=== PATIENT | female | born 1995 | race African-American/Black ===

== ENCOUNTER 2017-07-18 07:48 | Emergency (ER) | payer SELFPAY ==
[2017-07-18 08:21] LABS: APPEARANCE,URINE SLIGHTLY-CLOUDY; BILIRUBIN,URINE NEGATIVE (NEGATIVE); COLOR,URINE YELLOW; GLUCOSE, URINE NEGATIVE (NEGATIVE); KETONES,URINE NEGATIVE (NEGATIVE); LEUKOCYTE ESTERASE,URINE NEGATIVE (NEGATIVE); NITRITE,URINE NEGATIVE (NEGATIVE); PROTEIN,URINE NEGATIVE (NEGATIVE); URINE SPECIFIC GRAVITY 1.015
--- NOTE | 2017-07-18 08:39 | ER Document Report ---
ED GI/ - General Chief Complaint: Flank Pain Stated Complaint: BACK PAIN Time Seen by Provider: 07/18/17 08:14 Mode of Arrival: Ambulatory Information source: Patient Notes: Patient is a 21-year-old female who presents to the ER today for left-sided low back pain 5 months. Patient states that it worsened over the past months and that is why she is here today. Patient states it is worse in the morning whenever she wakes up and then after she does some stretches and moves around gets better throughout the day. Patient denies any nausea, vomiting, dysuria, hematuria, abnormal vaginal discharge. - Related Data Allergies/Adverse Reactions: bee pollen Allergy (Verified 07/18/17 08:13) Past Medical History - General Information source: Patient - Social History Smoking Status: Never Smoker Frequency of alcohol use: None Drug Abuse: None Family History: Reviewed & Not Pertinent Patient has suicidal ideation: No Patient has homicidal ideation: No Pulmonary Medical History: Reports: Hx Asthma Renal/ Medical History: Denies: Hx Peritoneal Dialysis Review of Systems - Review of Systems Constitutional: No symptoms reported EENT: No symptoms reported Cardiovascular: No symptoms reported Respiratory: No symptoms reported Gastrointestinal: No symptoms reported Genitourinary: No symptoms reported Female Genitourinary: No symptoms reported Musculoskeletal: See HPI Skin: No symptoms reported Hematologic/Lymphatic: No symptoms reported Neurological/Psychological: No symptoms reported Physical Exam - Vital signs Vitals: Temp Pulse Resp BP Pulse Ox 98.7 F 67 12 112/42 L 100 07/18/17 07:55 07/18/17 07:55 07/18/17 07:55 07/18/17 07:55 07/18/17 07:55 - Notes Notes: PHYSICAL EXAMINATION: GENERAL: Well-appearing, smiling, and in no acute distress. HEAD: Atraumatic, normocephalic. EYES: Pupils equal round and reactive to light, extraocular movements intact, sclera anicteric, conjunctiva are normal. NECK: Normal range of motion, supple without lymphadenopathy LUNGS: CTAB and equal. No wheezes rales or rhonchi. HEART: Regular rate and rhythm without murmurs ABDOMEN: Soft, no tenderness. No guarding, no rebound BACK: no vertebral tenderness, normal ROM GI/: no CVA tenderness EXTREMITIES: Normal range of motion, no pitting edema. No cyanosis. NEUROLOGICAL: Cranial nerves grossly intact. Normal sensory/motor exams. PSYCH: Normal mood, normal affect. SKIN: Warm, Dry, normal turgor, no rashes or lesions noted Course - Re-evaluation Re-evalutation: 07/18/17 08:43 Urinalysis negative for infection negative today. Patient has no tenderness to palpation at all to back or abdomen. Vitals are all stable. Patient is afebrile. - Vital Signs Vital signs: Temp Pulse Resp BP Pulse Ox 98.0 F 89 14 109/62 100 07/18/17 08:50 07/18/17 08:50 07/18/17 08:50 07/18/17 08:50 07/18/17 08:50 - Laboratory Laboratory results interpreted by me: 07/18/17 08:10 Urine Urobilinogen 4.0 H Discharge - Discharge Clinical Impression: Left-sided back pain Qualifiers: Back pain location: low back pain Chronicity: acute Sciatica presence: without sciatica Qualified Code(s): M54.5 - Low back pain Condition: Stable Disposition: HOME, SELF-CARE Additional Instructions: Please follow up with your primary care provider, please call today for follow up appt. Please return if you have worsening symptoms. Prescriptions: Cyclobenzaprine HCl [Flexeril 10 mg Tablet] 10 mg PO TIDP PRN #15 tab PRN Reason:
[2017-07-18 08:53] VITALS: BP 109/62
== END 2017-07-18 08:58 | disposition home or self-care (01) ==
LOC: ER 07:48
DX: M54.5 Low back pain (principal)
CPT/HCPCS: 81001; 81025; 99284

== ENCOUNTER 2018-04-27 10:48 | Emergency (ER) | payer SELFPAY ==
--- NOTE | 2018-04-27 11:17 | ER Document Report ---
ED Medical Screen (RME) - General Chief Complaint: Pelvic Pain Stated Complaint: LOWER PELVIC PAIN Time Seen by Provider: 04/27/18 11:12 Notes: Patient is a 22-year-old female that presents to the emergency department for chief complaint of pelvic pain and pain with intercourse. Patient reports having the symptoms for about 1 week since she finished her menstrual period, she has noted a vaginal odor as well, so she came to the ED to have this evaluated.. ROS: Other than noted above, the 12 point review of systems was reviewed with the patient and were negative, all pertinent findings are included in the HPI. PHYSICAL EXAMINATION: Vital signs reviewed. GENERAL: Well-appearing, well-nourished and in no acute distress. HEAD: Atraumatic, normocephalic. EYES: Pupils equal round extraocular movements intact, conjunctiva are normal. ENT: Nares patent NECK: Normal range of motion CV: Heart regular rate and rhythm LUNGS: No respiratory distress Musculoskeletal: Normal range of motion NEUROLOGICAL: Normal speech PSYCH: Normal mood, normal affect. MDM: Patient seen and examined for rapid initial assessment. Vital signs reviewed. A comprehensive ED assessment and evaluation of the patient, analysis of test results and completion of the medical decision making process will be conducted by additional ED providers. *Note is created using voice recognition software and may contain spelling, syntax or grammatical errors. TRAVEL OUTSIDE OF THE [place] IN LAST 30 DAYS: No - Related Data Allergies/Adverse Reactions: bee pollen Allergy (Verified 07/18/17 08:13) Past Medical History Pulmonary Medical History: Reports: Hx Asthma Renal/ Medical History: Denies: Hx Peritoneal Dialysis Physical Exam - Vital signs Vitals: Temp Pulse Resp BP Pulse Ox 98.1 F 103 H 20 123/76 100 04/27/18 10:54 04/27/18 10:54 04/27/18 10:54 04/27/18 10:54 04/27/18 10:54 Course - Vital Signs Vital signs: Temp Pulse Resp BP Pulse Ox 98.1 F 103 H 20 123/76 100 04/27/18 10:54 04/27/18 10:54 04/27/18 10:54 04/27/18 10:54 04/27/18 10:54
[2018-04-27] MEDS ORDERED: LIDOCAINE 1% INJ-PF (10 MG/ML) 30 ML SDV INJ ONE (11:48)
[2018-04-27] MEDS ORDERED: AZITHROMYCIN 250 MG TABLET PO ONE (11:48)
[2018-04-27] MEDS ORDERED: ONDANSETRON 4 MG TAB.RAPDIS PO ONE (11:49)
[2018-04-27] MEDS ORDERED: CEFTRIAXONE INJ 250 MG VIAL IM ONE (11:49)
--- NOTE | 2018-04-27 11:52 | ER Document Report ---
ED General - General Chief Complaint: Pelvic Pain Stated Complaint: LOWER PELVIC PAIN Time Seen by Provider: 04/27/18 11:12 Mode of Arrival: Ambulatory Information source: Patient Notes: 22-year-old female presents emergency department complaints of pelvic pain and abnormal vaginal discharge. Patient states that this is been present for the last 2 weeks. She states that she is having pain with intercourse. She denies any nausea, vomiting, diarrhea, constipation. She states that her last menstrual period was a month ago. She is not on any control. Patient is concerned about having a sexually transmitted disease. Patient is requesting treatment for sexually transmitted diseases. TRAVEL OUTSIDE OF THE [place] IN LAST 30 DAYS: No - HPI Onset: Other - 2 weeks Quality of pain: Stabbing Severity: Mild Associated symptoms: None Exacerbated by: Other - intercourse Relieved by: Denies Similar symptoms previously: No Recently seen / treated by doctor: No - Related Data Allergies/Adverse Reactions: bee pollen Allergy (Verified 07/18/17 08:13) Past Medical History - Social History Smoking Status: Never Smoker Family History: Reviewed & Not Pertinent Patient has suicidal ideation: No Patient has homicidal ideation: No Pulmonary Medical History: Reports: Hx Asthma Renal/ Medical History: Denies: Hx Peritoneal Dialysis Review of Systems - Review of Systems Constitutional: No symptoms reported EENT: No symptoms reported Cardiovascular: No symptoms reported Respiratory: No symptoms reported Gastrointestinal: Abdominal pain Genitourinary: No symptoms reported Female Genitourinary: Vaginal discharge, Vaginal odor Musculoskeletal: No symptoms reported Skin: No symptoms reported Hematologic/Lymphatic: No symptoms reported Neurological/Psychological: No symptoms reported -: Yes All other systems reviewed and negative Physical Exam - Vital signs Vitals: Temp Pulse Resp BP Pulse Ox 98.1 F 103 H 20 123/76 100 04/27/18 10:54 04/27/18 10:54 04/27/18 10:54 04/27/18 10:54 04/27/18 10:54 - Notes Notes: PHYSICAL EXAMINATION: GENERAL: Well-appearing, well-nourished and in no acute distress. HEAD: Atraumatic, normocephalic. EYES: Pupils equal round and reactive to light, extraocular movements intact, conjunctiva are normal. ENT: Nares patent, oropharynx clear without exudates. Moist mucous membranes. NECK: Normal range of motion, supple without lymphadenopathy LUNGS: Breath sounds clear to auscultation bilaterally and equal. No wheezes rales or rhonchi. HEART: Regular rate and rhythm without murmurs ABDOMEN: Soft, nontender, nondistended abdomen. No guarding, no rebound. No masses appreciated. Female : No vaginal discharge appreciated. +cervical motion tenderness. No ovarian tenderness. Musculoskeletal: Normal range of motion, no pitting or edema. No cyanosis. NEUROLOGICAL: Cranial nerves grossly intact. Normal speech, normal gait. Normal sensory, motor exams PSYCH: Normal mood, normal affect. SKIN: Warm, Dry, normal turgor, no rashes or lesions noted. Course - Re-evaluation Re-evalutation: 04/27/18 13:08 Pelvic exam remarkable for cervical motion tenderness to palpation. No abnormal discharge was appreciated. Patient treated with Rocephin and azithromycin as she is concerned out sexually transmitted diseases. Patient instructed to follow-up with the [facility] SCIENTIST provided if she continues to have her pelvic discomfort, to take [id number] medication as needed for symptom relief, and to return for worsening symptoms. Patient is agreeable with plan of care. - Vital Signs Vital signs: Temp Pulse Resp BP Pulse Ox 98.1 F 103 H 20 123/76 100 04/27/18 10:54 04/27/18 10:54 04/27/18 10:54 04/27/18 10:54 04/27/18 10:54 - Laboratory Laboratory results interpreted by me: 04/27/18 12:03 Urine Urobilinogen 2.0 H Discharge - Discharge Clinical Impression: Cervicitis Condition: Good Disposition: HOME, SELF-CARE Instructions: Pelvic Pain ([facility]), Azithromycin ([facility]), Cephalosporins ([facility]) Referrals: SAMANTHA EVANS MD [ACTIVE STAFF] - Follow up as needed
[2018-04-27 12:22] LABS: APPEARANCE,URINE SLIGHTLY-CLOUDY; BILIRUBIN,URINE NEGATIVE (NEGATIVE); COLOR,URINE YELLOW; GLUCOSE, URINE NEGATIVE (NEGATIVE); KETONES,URINE NEGATIVE (NEGATIVE); LEUKOCYTE ESTERASE,URINE NEGATIVE (NEGATIVE); NITRITE,URINE NEGATIVE (NEGATIVE); PROTEIN,URINE NEGATIVE (NEGATIVE); URINE SPECIFIC GRAVITY 1.018
[2018-04-27 12:39] LABS: T.VAGINALIS (WET MOUNT) NO TRICHOMONAS SEEN; YEAST (WET MOUNT) NO YEAST SEEN
[2018-04-27 12:40] LABS: EPITHELIALS (WET MOUNT) 3+ EPITHELIALS SEEN; WBCS (WET MOUNT) NO WBCS SEEN
[2018-04-27 13:59] VITALS: BP 113/61
[2018-04-27 14:11] LABS: CHLAM PCR NOT DETECTED (NOT DETECT); GON PCR NOT DETECTED (NOT DETECT)
== END 2018-04-27 13:57 | disposition home or self-care (01) ==
LOC: ER 10:48
DX: N72 Inflammatory disease of cervix uteri (principal)
CPT/HCPCS: 99284; 96372; 87210; 81025; 81001; 87491; 87591; S0119; J3490; J0696

== ENCOUNTER → 2018-10-03 | Outpatient (CLI) | payer SELFPAY ==
--- NOTE | 2018-10-03 15:58 | RADIOLOGY REPORT (SQ) ---
EXAM DESCRIPTION: U/S [id number] TRNABD 1GES W/ODOP COMPLETED DATE/TIME: 10/03/2018 2:19 pm REASON FOR STUDY: Z34.01 ENCNTR FOR SUPRVSN OF NORMAL FIRST PREG, FIRST TRIMESTER Z34.01 ENCNTR FOR SUPRVSN OF NORMAL FIRST PREG, FIRST TRIMES COMPARISON: None. TECHNIQUE: Transabdominal static and realtime grayscale images acquired of the pelvis. Additional se lected spectral and color Doppler images recorded. All images stored on PACs. bHCG: Not available CLINICAL DATES: Last menses 07/26/2018 LIMITATIONS: None. FINDINGS: FETUS: Single Living intrauterine . ULTRASOUND EGA: 9 weeks 5 days ULTRASOUND ESHA: 05/03/2019 EFW: Not applicable less than 20 weeks. CRL: 2.9 cm FHR: 182 beats per minute. SURVEY: too early to assess AMNIOTIC FLUID: Adequate amount. PLACENTA: Not yet developed due to early gestation. SUBCHORIONIC BLEED: Yes. SIZE OF BLEED: Small, 7 x 5 mm UTERUS: No masses. No anomalies. Uterus is 8.6 x 6.1 x 6.1 cm CERVICAL LENGTH: 2.6 cm Closed. RIGHT ADNEXA: Normal ovary with normal vascular flow. Right ovary 2.8 x 3.1 x 1.6 cm No adnexal free fluid. No adnexal masses. LEFT ADNEXA: Normal ovary with normal vascular flow. Left ovary 3 x 2.7 x 2.1 cm No adnexal free fluid. No adnexal masses. FREE FLUID: None. OTHER: No other significant finding. IMPRESSION: LIVING INTRAUTERINE . EGA 9 weeks 5 days Trimester of : First - 0 to 13 weeks. TECHNICAL DOCUMENTATION: JOB ID: [id number]- All Rights Reserved rev Reading location - IP/workstation name: [email or web address]
== END ==
LOC: RAD 13:48
PROVIDERS: ATTEND Midwife
DX: Z34.01 Encounter for supervision of normal first pregnancy, first trimester (principal)
CPT/HCPCS: 76801

== ENCOUNTER 2018-12-01 07:48 | Emergency (ER) | payer MEDICAID ==
[2018-12-01] MEDS ORDERED: PYRIDOXINE HCL INJ 100 MG/1 ML VIAL IM ONE (09:19)
[2018-12-01] MEDS ORDERED: NORMAL SALINE 1000 ML 1,000 ML IV ONE (09:19)
--- NOTE | 2018-12-01 09:19 | ER Document Report ---
ED Medical Screen (RME) - General Chief Complaint: Vomiting Stated Complaint: VOMITING Time Seen by Provider: 12/01/18 09:17 Primary Care Provider: JEFFERSON MIDDLETON CNM [Primary Care Provider] - Follow up as needed Mode of Arrival: Ambulatory Information source: Patient Notes: 23-year-old female presents to ED for nausea and vomiting since yesterday. She is 18 weeks 1 day . Last menstrual period was 3-19 is 1 para 0. She states she is been nausea and vomiting. She has vomited once today started vomiting yesterday was not able to keep down breakfast or lunch vomited her dinner also. Patient is alert oriented respirations regular and unlabored speaking in full sentences walks with a even steady gait. She states she has not tried to take anything for her nausea and vomiting yet. She has not tried vitamin B6. I have greeted and performed a rapid initial assessment of this patient. A comprehensive ED assessment and evaluation of the patient, analysis of test results and completion of medical decision making process will be conducted by an additional ED providers. Dictation of this chart was performed using voice recognition software; therefore, there may be some unintended grammatical errors. TRAVEL OUTSIDE OF THE [place] IN LAST 30 DAYS: No - Related Data Allergies/Adverse Reactions: bee pollen Allergy (Verified 12/01/18 07:51) No Known Drug Allergies Allergy (Verified 12/01/18 07:51) Past Medical History Pulmonary Medical History: Reports: Hx Asthma Renal/ Medical History: Denies: Hx Peritoneal Dialysis Physical Exam - Vital signs Vitals: Temp Pulse Resp BP Pulse Ox 98.3 F 76 9 L 114/59 L 100 12/01/18 08:04 12/01/18 08:04 12/01/18 08:04 12/01/18 08:04 12/01/18 08:04 Course - Vital Signs Vital signs: Temp Pulse Resp BP Pulse Ox 98.3 F 76 9 L 114/59 L 100 12/01/18 08:04 12/01/18 08:04 12/01/18 08:04 12/01/18 08:04 12/01/18 08:04 Doctor's Discharge - Discharge Referrals: JEFFERSON MIDDLETON CNM [Primary Care Provider] - Follow up as needed
[2018-12-01 09:47] LABS: ABSOLUTE LYMPHOCYTES (AUTO) 2.2 10^3/uL (0.5-4.7); ABSOLUTE MONOCYTES (AUTO) 0.7 10^3/uL (0.1-1.4); ABSOLUTE NEUT (AUTO) 8.2 10^3/uL (1.7-8.2); BASOPHILS % (AUTO) 0.3 % (0-2); EOSINOPHILS % (AUTO) 0.3 % (0-6); HEMATOCRIT 36.8 % (36.0-47.0); LYMPHOCYTES % (AUTO) 19.8 % (13-45); MEAN CORPUSCULAR HEMOGLOBIN 30.9 pg (27.0-33.4); MEAN CORPUSCULAR HGB CONC 32.7 g/dL (32.0-36.0); MEAN CORPUSCULAR VOLUME 94 fl (80-97); MONOCYTES % (AUTO) 6.7 % (3-13); PLATELET COUNT 321 10^3/uL (150-450); SEGMENTED NEUTROPHILS % (AUTO) 72.9 % (42-78); TOTAL CELLS COUNTED % (AUTO) 100 %; WHITE BLOOD COUNT 11.2 10^3/uL (4.0-10.5)
--- NOTE | 2018-12-01 09:48 | ER Document Report ---
ED General - General Chief Complaint: Vomiting Stated Complaint: VOMITING Time Seen by Provider: 12/01/18 09:17 Primary Care Provider: JEFFERSON MIDDLETON CNM [Primary Care Provider] - Follow up as needed Mode of Arrival: Ambulatory Information source: Patient, Parent TRAVEL OUTSIDE OF THE [place] IN LAST 30 DAYS: No - HPI Patient complains to provider of: vomiting in Onset: Yesterday - pt is G1 approx 18 wks along who had an episode of emesis yesterday. Earlier this am, she had another episode of emesis with a small amount of blood in it. Feels better now. - Related Data Allergies/Adverse Reactions: bee pollen Allergy (Verified 12/01/18 07:51) No Known Drug Allergies Allergy (Verified 12/01/18 07:51) Past Medical History - General Information source: Patient - Social History Smoking Status: Never Smoker Chew tobacco use (# tins/day): No Frequency of alcohol use: None Drug Abuse: None Family History: Reviewed & Not Pertinent Patient has suicidal ideation: No Patient has homicidal ideation: No Pulmonary Medical History: Reports: Hx Asthma Renal/ Medical History: Denies: Hx Peritoneal Dialysis Review of Systems - Review of Systems Constitutional: No symptoms reported EENT: No symptoms reported Cardiovascular: No symptoms reported Respiratory: No symptoms reported Gastrointestinal: See HPI, Vomiting Female Genitourinary: No symptoms reported Musculoskeletal: No symptoms reported Neurological/Psychological: No symptoms reported -: Yes All other systems reviewed and negative Physical Exam - Vital signs Vitals: Temp Pulse Resp BP Pulse Ox 98.3 F 76 9 L 114/59 L 100 12/01/18 08:04 12/01/18 08:04 12/01/18 08:04 12/01/18 08:04 12/01/18 08:04 - General General appearance: Appears well In distress: None - HEENT Head: Normocephalic Mouth/Lips: Normal Mucous membranes: Normal Pharynx: Normal Neck: Normal - Respiratory Respiratory status: No respiratory distress Breath sounds: Normal - Cardiovascular Rhythm: Regular Heart sounds: Normal auscultation Murmur: No - Abdominal Inspection: Normal Distension: No distension Bowel sounds: Normal Tenderness: Nontender Organomegaly: No organomegaly - Extremities General upper extremity: Normal inspection, Normal strength - Neurological Neuro grossly intact: Yes Cognition: Normal Orientation: AAOx4 Course - Re-evaluation Re-evalutation: 12/01/18 10:28 pt. felt much better at time of d/c -- no vomiting in ED -expressed desire to go home with mother. Has appt. with OB tomorrow - Vital Signs Vital signs: Temp Pulse Resp BP Pulse Ox 98.3 F 76 9 L 114/55 L 100 12/01/18 09:18 12/01/18 09:18 12/01/18 09:18 12/01/18 09:18 12/01/18 09:18 - Laboratory Result Diagrams: 12/01/18 09:08 12/01/18 09:08 Laboratory results interpreted by me: 12/01/18 12/01/18 12/01/18 09:08 09:08 09:08 WBC 11.2 H Glucose 70 L Urine Ketones 25 H Discharge - Discharge Clinical Impression: Vomiting Qualifiers: Vomiting type: unspecified Vomiting Intractability: non-intractable Nausea presence: unspecified Qualified Code(s): R11.10 - Vomiting, unspecified Condition: Stable Disposition: HOME, SELF-CARE Instructions: Intravenous (IV) Fluids ([facility]) Additional Instructions: rest, increase fluids, take meds as prescribed, return if worse Prescriptions: Ondansetron HCl [Zofran 4 mg Tablet] 1 - 2 tab PO Q4H PRN #10 tablet PRN Reason: Referrals: JEFEFRSON MIDDLETON CNM [Primary Care Provider] - Follow up as needed
[2018-12-01 09:52] LABS: APPEARANCE,URINE CLEAR; BILIRUBIN,URINE NEGATIVE (NEGATIVE); COLOR,URINE LIGHT YELLOW; GLUCOSE, URINE NEGATIVE (NEGATIVE); KETONES,URINE 25 mg/dL (NEGATIVE); URINE SPECIFIC GRAVITY 1.008
[2018-12-01 09:53] LABS: LEUKOCYTE ESTERASE,URINE NEGATIVE (NEGATIVE); NITRITE,URINE NEGATIVE (NEGATIVE); PROTEIN,URINE NEGATIVE (NEGATIVE); UROBILINOGEN,URINE NEGATIVE mg/dL (<2.0)
[2018-12-01 10:11] LABS: ALANINE AMINOTRANSFERASE 26 U/L (9-52); ALBUMIN 4.3 g/dL (3.5-5.0); ALKALINE PHOSPHATASE 61 U/L (38-126); ANION GAP 12 (5-19); ASPARTATE AMINO TRANSFERASE 31 U/L (14-36); BILIRUBIN,DIRECT 0.2 mg/dL (0.0-0.4); BILIRUBIN,TOTAL 0.5 mg/dL (0.2-1.3); BLOOD UREA NITROGEN 7 mg/dL (7-20); CALCIUM 9.7 mg/dL (8.4-10.2); CARBON DIOXIDE 23 mmol/L (22-30); CHLORIDE 103 mmol/L (98-107); GLUCOSE 70 mg/dL (75-110); POTASSIUM 3.9 mmol/L (3.6-5.0); SODIUM 137.6 mmol/L (137-145); TOTAL PROTEIN 8.1 g/dL (6.3-8.2)
[2018-12-01 11:02] VITALS: BP 119/48
== END 2018-12-01 11:02 | disposition home or self-care (01) ==
LOC: ER 07:48
DX: O99.619 Diseases of the digestive system complicating pregnancy, unspecified trimester (principal); K92.0 Hematemesis; O99.519 Diseases of the respiratory system complicating pregnancy, unspecified trimester; J45.909 Unspecified asthma, uncomplicated; Z3A.00 Weeks of gestation of pregnancy not specified; Z91.030 Bee allergy status
CPT/HCPCS: 99284; 96372; 96360; 86900; 86901; 36415; 84702; 85025; 80053; 81001; J3415; J7030

== ENCOUNTER 2019-02-08 00:40 | Inpatient (IN) | payer MEDICAID ==
[2019-02-08] MEDS ORDERED: MORPHINE SULFATE 10 MG/ML INJ ONE ×3 (01:03→23:15)
[2019-02-08] MEDS ORDERED: MORPHINE SULFATE 10 MG/ML INJ IV ONE (01:06)
[2019-02-08] MEDS ORDERED: CEFAZOLIN INJ 1 GM VIAL ONE ×2 (01:12→20:07)
[2019-02-08] MEDS ORDERED: CITRIC ACID/SODIUM CITRATE ORAL SOLN 15 ML UDCUP ONE ×2 (01:12→20:07)
[2019-02-08] MEDS ORDERED: RINGERS SOLUTION,LACTATED 1,000 ML IV PRN ×2 (01:17→21:55)
[2019-02-08] MEDS ORDERED: OXYCODONE-ACETAMINOPHEN 5-325 MG TABLET ONE (01:22)
[2019-02-08] MEDS ORDERED: OXYCODONE-ACETAMINOPHEN 5-325 MG TABLET PO ONE (01:24)
[2019-02-08 01:26] LABS: ABSOLUTE EOSINOPHILS # (AUTO) 0.1 10^3/uL (0.0-0.6); ABSOLUTE LYMPHOCYTES (AUTO) 2.6 10^3/uL (0.5-4.7); ABSOLUTE MONOCYTES (AUTO) 0.9 10^3/uL (0.1-1.4); ABSOLUTE NEUT (AUTO) 7.3 10^3/uL (1.7-8.2); BASOPHILS % (AUTO) 0.3 % (0-2); EOSINOPHILS % (AUTO) 0.6 % (0-6); HEMATOCRIT 30.9 % (36.0-47.0); HEMOGLOBIN 10.3 g/dL (12.0-15.5); LYMPHOCYTES % (AUTO) 23.9 % (13-45); MEAN CORPUSCULAR HGB CONC 33.4 g/dL (32.0-36.0); MEAN CORPUSCULAR VOLUME 93 fl (80-97); MONOCYTES % (AUTO) 8.4 % (3-13); PLATELET COUNT 223 10^3/uL (150-450); RED BLOOD COUNT 3.33 10^6/uL (3.72-5.28); RED CELL DISTRIBUTION WIDTH 12.1 % (11.5-14.0); SEGMENTED NEUTROPHILS % (AUTO) 66.8 % (42-78); TOTAL CELLS COUNTED % (AUTO) 100 %
[2019-02-08 01:31] LABS: INTERNATIONAL RATION (INR) 0.96; PROTHROMBIN TIME 12.8 SEC (11.4-15.4)
[2019-02-08 01:32] LABS: FIBRINOGEN 355 mg/dL (209-497); PARTIAL THROMBOPLASTIN TIME 29.9 SEC (23.5-35.8)
[2019-02-08] MEDS ORDERED: NORMAL SALINE 250 ML IV PRN ×3 (01:39→11:50)
[2019-02-08 01:42] LABS: ALBUMIN 3.3 g/dL (3.5-5.0); ALKALINE PHOSPHATASE 172 U/L (38-126); AMYLASE 147 U/L (30-110); ANION GAP 8 (5-19); ASPARTATE AMINO TRANSFERASE 24 U/L (14-36); BILIRUBIN,TOTAL 0.5 mg/dL (0.2-1.3); BLOOD UREA NITROGEN 10 mg/dL (7-20); CALCIUM 8.6 mg/dL (8.4-10.2); CARBON DIOXIDE 23 mmol/L (22-30); CHLORIDE 107 mmol/L (98-107); GLUCOSE 94 mg/dL (75-110); POTASSIUM 3.7 mmol/L (3.6-5.0); TOTAL PROTEIN 6.4 g/dL (6.3-8.2)
--- NOTE | 2019-02-08 02:06 | Admission Physical ---
Datetime Report Generated by CPN: 02/08/2019 02:06 CURRENT ADMISSION Chief Complaint: Other Chief Complaint Other: Sudden-onset lower abdominal pain, continuous. Pt reports pain started about an hour ago. Associated with vomiting. No vaginal bleeding. Last felt baby move "earlier today." Screaming "help me" on arrival. Indication for Induction: Demise Admit Impression : , Intrauterine Admit Impression- Other: Suspected placental abruption. demise Admit Plan: Admit to Unit; Initiate Labor Protocol Admit Plan- Other: Start Cytotec induction with 200mcg vaginally. ALLERGIES Medication Allergies: No Known Drug Allergies (12/01/2018); bee pollen (12/01/2018) OBSTETRICAL HISTORY EDC: 05/02/2019 00:00 : 1 Para: 0 Term: 0 : 0 SAB: 0 IAB: 0 Ectopic: 0 Livin Cesareans: 0 VBACs: 0 Multiple Births: 0 PHYSICAL EXAM General: Normal HEENT: Normal Heart: Normal Lungs: Normal Abdomen: Abnormal Genitourinary Exam: Normal Extremities: Normal Pelvic Type: Adequate Physical Exam Comments: Uterine fundus firm. Bedside uls performed by ar: no FHR seen, placenta globoid with a portion appearing not to be attached to uterus. Findings confirmed by bedside uls via radiology. No vaginal bleeding on SVE. Vital Signs: Reviewed VAGINAL EXAM Dilatation: 1 Effacement: 0 Station: -3 MEMBRANES Membranes: Intact FETUS A EGA: 28.1 FHR- Baseline: 0 FHR Comments: demise Admit Comment: POC discussed with pt and her mother. Pt agrees to POC. INFORMED CONSENT Signature: with User ID: [email or web address]
[2019-02-08] MEDS ORDERED: MORPHINE SULFATE 60 MG/60 ML RTUINJ IV ONE (02:08)
[2019-02-08] MEDS ORDERED: MISOPROSTOL 0.2 MG TABLET PV ONE (02:15)
--- NOTE | 2019-02-08 02:19 | RADIOLOGY REPORT (SQ) ---
EXAM DESCRIPTION: US LIMITED COMPLETED DATE/TME: 02/08/2019 00:00 CLINICAL HISTORY: 23 years, Female, r/o abruption COMPARISON: None. TECHNIQUE: Emergent OB ultrasound LIMITATIONS: None. FINDINGS: Current ultrasound age is 27 weeks 1 day. There is a single intrauterine gestation in the cephalic presentation. However, there are no detectable heart tones, and findings are worrisome for demise. A diffusely heterogeneous appearance to the placenta without evidence for previa. Anterior location of the placenta. Large placental lakes are suggested, with areas of possible placental separation and marginal abruption is not excluded. However, no discrete or defined fluid collection adjacent to the placenta. Largest ventral pocket was obtained at 6.8 cm. IMPRESSION: Abnormal appearance to the placenta and findings concerning for marginal abruption without a discrete or defined. Placental fluid collection. In addition, there are no detectable heart tones, concerning for demise. copyright 2010 [employer]- All Rights Reserved
[2019-02-08] MEDS ORDERED: KETOROLAC TROMETHAMINE INJ/PF 30 MG/1 ML SDV ONE (03:07)
[2019-02-08] MEDS ORDERED: PROMETHAZINE HCL INJ 25 MG/1 ML VIAL ONE (03:08)
[2019-02-08] MEDS ORDERED: MISOPROSTOL 0.2 MG TABLET ONE ×2 (04:04→20:24)
[2019-02-08 05:51] LABS: APPEARANCE,URINE SLIGHTLY-CLOUDY; BILIRUBIN,URINE NEGATIVE (NEGATIVE); COLOR,URINE YELLOW; GLUCOSE, URINE 50 mg/dL (NEGATIVE); KETONES,URINE NEGATIVE (NEGATIVE); LEUKOCYTE ESTERASE,URINE NEGATIVE (NEGATIVE); NITRITE,URINE NEGATIVE (NEGATIVE); PROTEIN,URINE 100 mg/dL (NEGATIVE); URINE SPECIFIC GRAVITY 1.015; UROBILINOGEN,URINE NEGATIVE mg/dL (<2.0)
[2019-02-08 05:52] LABS: URINE BARBITURATES SCREEN NEGATIVE; URINE BENZODIAZEPINES SCREEN NEGATIVE; URINE COCAINE SCREEN NEGATIVE; URINE METHADONE SCREEN NEGATIVE; URINE PHENCYCLIDINE SCREEN NEGATIVE
[2019-02-08 06:22] LABS: URINE AMPHETAMINES SCREEN NEGATIVE; URINE MARIJUANA (THC) SCREEN UNCONFIRMED POSITIVE
[2019-02-08] MEDS ORDERED: MISOPROSTOL 0.2 MG TABLET PV SCH (09:00)
[2019-02-08] MEDS ORDERED: MORPHINE SULFATE 60 MG/60 ML RTUINJ IV PRN (09:01)
[2019-02-08 09:15] LABS: ABSOLUTE LYMPHOCYTES (AUTO) 1.6 10^3/uL (0.5-4.7); ABSOLUTE MONOCYTES (AUTO) 1.1 10^3/uL (0.1-1.4); ABSOLUTE NEUT (AUTO) 12.3 10^3/uL (1.7-8.2); BASOPHILS % (AUTO) 0.2 % (0-2); HEMATOCRIT 26.7 % (36.0-47.0); HEMOGLOBIN 8.8 g/dL (12.0-15.5); LYMPHOCYTES % (AUTO) 10.7 % (13-45); MEAN CORPUSCULAR HEMOGLOBIN 30.5 pg (27.0-33.4); MEAN CORPUSCULAR HGB CONC 33.2 g/dL (32.0-36.0); MEAN CORPUSCULAR VOLUME 92 fl (80-97); MONOCYTES % (AUTO) 7.3 % (3-13); PLATELET COUNT 198 10^3/uL (150-450); RED BLOOD COUNT 2.89 10^6/uL (3.72-5.28); RED CELL DISTRIBUTION WIDTH 12.5 % (11.5-14.0); SEGMENTED NEUTROPHILS % (AUTO) 81.8 % (42-78); TOTAL CELLS COUNTED % (AUTO) 100 %; WHITE BLOOD COUNT 15.1 10^3/uL (4.0-10.5)
[2019-02-08 09:25] LABS: INTERNATIONAL RATION (INR) 1.01; PROTHROMBIN TIME 13.3 SEC (11.4-15.4)
[2019-02-08 09:26] LABS: FIBRINOGEN 297 mg/dL (209-497); PARTIAL THROMBOPLASTIN TIME 30.3 SEC (23.5-35.8)
[2019-02-08] MEDS ORDERED: PHENYLEPHRINE HCL INJ/PF 10 MG/1 ML SDV ONE (09:38)
[2019-02-08] MEDS ORDERED: EPHEDRINE SULFATE INJ 50 MG/1 ML AMPULE ONE (09:39)
[2019-02-08] MEDS ORDERED: BUPIVACAINE HCL 0.25 % INJ/PF (2.5 MG/1 ML) 30 ML VIAL ONE (09:39)
[2019-02-08] MEDS ORDERED: FENTANYL/BUPIVACAINE/NS/PF 300 MCG/150 ML RTUINJ EPI ONE (09:39)
[2019-02-08] MEDS ORDERED: FENTANYL CITRATE INJ/PF 100 MCG/2 ML AMPUL ONE ×2 (09:39→20:22)
[2019-02-08] MEDS ORDERED: OXYTOCIN/NORMAL SALINE 20 UNIT/1,000 ML RTUINJ IV PRN ×2 (11:09→21:55)
[2019-02-08] MEDS ORDERED: OXYTOCIN/NORMAL SALINE 20 UNIT/1,000 ML RTUINJ ONE ×3 (11:16→23:16)
[2019-02-08] MEDS: MISOPROSTOL 0.2 MG TABLET PV SCH (11:18)
[2019-02-08] MEDS ORDERED: FAMOTIDINE INJ/PF 20 MG/2 ML SDV IV ONE ×2 (12:36→13:00)
[2019-02-08] MEDS ORDERED: FAMOTIDINE 20 MG TABLET ONE (12:36)
[2019-02-08 13:57] LABS: ABSOLUTE LYMPHOCYTES (AUTO) 1.9 10^3/uL (0.5-4.7); ABSOLUTE MONOCYTES (AUTO) 1.2 10^3/uL (0.1-1.4); ABSOLUTE NEUT (AUTO) 11.4 10^3/uL (1.7-8.2); BASOPHILS % (AUTO) 0.1 % (0-2); HEMATOCRIT 30.9 % (36.0-47.0); HEMOGLOBIN 10.1 g/dL (12.0-15.5); LYMPHOCYTES % (AUTO) 13.3 % (13-45); MEAN CORPUSCULAR HEMOGLOBIN 29.4 pg (27.0-33.4); MEAN CORPUSCULAR HGB CONC 32.5 g/dL (32.0-36.0); MEAN CORPUSCULAR VOLUME 90 fl (80-97); MONOCYTES % (AUTO) 8.2 % (3-13); PLATELET COUNT 178 10^3/uL (150-450); RED BLOOD COUNT 3.42 10^6/uL (3.72-5.28); RED CELL DISTRIBUTION WIDTH 14.1 % (11.5-14.0); SEGMENTED NEUTROPHILS % (AUTO) 78.4 % (42-78); TOTAL CELLS COUNTED % (AUTO) 100 %; WHITE BLOOD COUNT 14.6 10^3/uL (4.0-10.5)
[2019-02-08 14:01] LABS: INTERNATIONAL RATION (INR) 1.02; PROTHROMBIN TIME 13.4 SEC (11.4-15.4)
[2019-02-08 14:02] LABS: FIBRINOGEN 287 mg/dL (209-497); PARTIAL THROMBOPLASTIN TIME 29.9 SEC (23.5-35.8)
[2019-02-08 18:57] LABS: HEMATOCRIT 31.5 % (36.0-47.0); HEMOGLOBIN 10.3 g/dL (12.0-15.5); MEAN CORPUSCULAR HEMOGLOBIN 29.4 pg (27.0-33.4); MEAN CORPUSCULAR HGB CONC 32.8 g/dL (32.0-36.0); MEAN CORPUSCULAR VOLUME 90 fl (80-97); PLATELET COUNT 186 10^3/uL (150-450); RED BLOOD COUNT 3.52 10^6/uL (3.72-5.28); RED CELL DISTRIBUTION WIDTH 14.4 % (11.5-14.0); WHITE BLOOD COUNT 20.7 10^3/uL (4.0-10.5)
[2019-02-08 19:00] LABS: PROTHROMBIN TIME 13.2 SEC (11.4-15.4)
[2019-02-08 19:01] LABS: FIBRINOGEN 340 mg/dL (209-497)
[2019-02-08 19:29] LABS: ABSOLUTE LYMPHOCYTES# (MANUAL) 2.1 10^3/uL (0.5-4.7); ABSOLUTE MONOCYTES # (MANUAL) 2.1 10^3/uL (0.1-1.4); ANISOCYTOSIS SLIGHT; BASOPHILS % (MANUAL) 0 % (0-2); EOSINOPHILS % (MANUAL) 0 % (0-6); HYPOCHROMASIA SLIGHT; LYMPHOCYTES % (MANUAL) 10 % (13-45); MONOCYTES % (MANUAL) 10 % (3-13); SEGMENTED NEUTROPHILS % (MAN) 80 % (42-78); TOTAL CELLS COUNTED 100
[2019-02-08 19:30] LABS: PLATELET COMMENT ADEQUATE
[2019-02-08] MEDS ORDERED: CEFAZOLIN SODIUM 2 GM in DEXTROSE 5%-WATER 50 ML IV PRN (20:09)
[2019-02-08] MEDS ORDERED: OXYTOCIN 10 UNIT/ML VIAL ONE (20:21)
[2019-02-08] MEDS ORDERED: LIDOCAINE 2% INJ-PF (20 MG/ML) 10 ML AMPUL ONE (20:21)
[2019-02-08] MEDS ORDERED: MIDAZOLAM 2 MG/2 ML INJ ONE ×2 (20:22→21:10)
[2019-02-08] MEDS ORDERED: CARBOPROST TROMETHAMINE INJ 250 MCG/1 ML AMPULE ONE (20:24)
[2019-02-08] MEDS ORDERED: METHYLERGONOVINE MALEATE INJ/PF 0.2 MG/1 ML AMPULE ONE (20:24)
[2019-02-08] MEDS ORDERED: LOPERAMIDE HCL 2 MG CAPSULE ONE (20:24)
[2019-02-08] MEDS ORDERED: SIMETHICONE 80 MG TAB.CHEW PO PRN (21:55)
[2019-02-08] MEDS ORDERED: ACETAMINOPHEN 325 MG TABLET PO PRN (21:55)
[2019-02-08] MEDS ORDERED: PROMETHAZINE HCL INJ 25 MG/1 ML VIAL IV PRN (21:55)
[2019-02-08] MEDS ORDERED: ACETAMINOPHEN 100 ML IV PRN (21:55)
[2019-02-08] MEDS ORDERED: DIPH/PERTUSS(ACELL)/TETANUS VAC/PF 0.5 ML SYR (>=10YO) IM PRN (21:55)
[2019-02-08] MEDS ORDERED: HYDROMORPHONE HCL INJ/PF 2 MG/ML AMPULE IV PRN (21:55)
[2019-02-08] MEDS ORDERED: OXYCODONE-ACETAMINOPHEN 5-325 MG TABLET PO PRN (21:55)
--- NOTE | 2019-02-08 22:04 | PDOC DELIVERY SUMMARY ---
Delivery Summary - Maternal Hx : I Number of Living Children: 0 ESHA: 05/02/19 Gestational Age: 28.1 Risk Factors: Other - Placental abruption Intrapartum: Bleeding - Delivery Labor: Induction Presentation: Vertex Support Person Present: Yes Location: LD : Primary Placenta: Abnormal - Placental abruption Placenta Description: 100% placental abruption Number of Vessels (Cord): 3 Nuchal Cord: No Delivery of Placenta Date: 02/08/19 - Medications Type of Anesthesia:: Epidural - Delivery Personnel MD: JESSICA UNDERWOOD
--- NOTE | 2019-02-08 22:10 | Operative Report ---
Operative Report DATE OF SURGERY: 02/08/19 PREOPERATIVE DIAGNOSIS: 1. Intrauterine demise at 28 weeks. 2. Placent al abruption. 3. Failed induction. 4. Large leukocytosis. 5. Maternal fever. 6. Anemia. 7. Rh+ POSTOPERATIVE DIAGNOSIS: Same OPERATION: Primary low transverse section via Pfannenstiel SURGEON: JESSICA WYNN ANESTHESIA: Epidural TISSUE REMOVED OR ALTERED: Placenta COMPLICATIONS: None ESTIMATED BLOOD LOSS: 100 mL INTRAOPERATIVE FINDINGS: 100% placental abruption; nonviable fetus in the cephalic position; 0 at 1, 0 at 5 PROCEDURE: The patient was taken to the operating room where spinal anesthesia was obtained and found to be adequate. She was then prepped and draped in the normal sterile fashion and placed in the dorsal supine position with a leftward tilt. A Pfannenstiel skin incision was then made and carried through to the und erlying layers of the fascia with the scalpel. The fascia was incised in the midline and the incision extended laterally with the Ayon scissors. The superior aspect of the fascial incision was then grasped with Hermilo clamps elevated and the underlying rectus muscles dissected off both bluntly and sharply. Attention was then turned to the inferior aspect of the fascial incision which in a similar fashion was grasped, tented up with Hermilo clamps, and the rectus muscles dissected off both bluntly and sharply. The rectus muscles were then in the midline and the peritoneum was identified and entered both sharply and bluntly. The peritoneal incision was then extended superiorly and inferiorly with good visualization of the bladder. The bladder blade was inserted and the vesicouterine peritoneum identified grasped with Salvadorean pickups and entered sharply with the Metzenbaum scissors. This incision was then extended laterally with the Metzenbaum scissors and a bladder flap c reated digitally. The bladder blade was then reinserted and the lower uterine segment incised in a transverse fashion with the scalpel. The uterine incision was then extended bluntly and with the bandage scissors. The bladder blade was removed and the 's head was delivered from cephalic presentation, atraumatically. The cord doubly clamped and cut. The demise infant was placed in the bassinet. The placenta was then delivered manually, which had 100% abrupted. The uterus exteriorized and cleared of all clots and debris. The uterine incision was then repaired with 0 Vicryl in a running locked fashion. 0-Chromic was used to obtain hemostasis via imbrication of the initial layer. There was generalized oozing at the bladder flap, therefore Surgicel was placed beneath and the ty dder flap was then repaired with 3-0 Vicryl in a running fashion. The uterus was returned to the patient's abdomen and Interceed was placed overlying the uterine incision, as well as a piece placed vertically on the anterior surface of the uterus, to prevent adhesions. The peritoneum was then closed in an interrupted fashion with 2-0 Vicryl. The gutters were cleared of all clots and debris. There was generalized oozing, therefore Surgicel was placed beneath the fascia. The fascia was then reapproximated with 0 Vicryl in a running fashion from each lateral edge to the midline. Another piece of Surgicel was placed beneath the subcutaneous fat layer. The skin was closed with 4-0 Monocryl in a running, subcuticular fashion. The patient tolerated the procedure well. Sponge, lap, needle and instrument counts are correct x 2. 2 g of Ancef were given prior to skin incision. The patient was taken to the recovery area awake and in stable condition.
[2019-02-08] MEDS ORDERED: ACETAMINOPHEN 1,000 MG/100 ML RTUPB IV ONE (22:13)
[2019-02-09] MEDS ORDERED: CEFAZOLIN 1 GM/D5W RTU 1 GM/50 ML RTUPB IV SCH
[2019-02-09] MEDS: OXYCODONE-ACETAMINOPHEN 5-325 MG TABLET PO PRN ×4 (00:51→14:10)
[2019-02-09] MEDS: IBUPROFEN 800 MG TABLET PO SCH ×4 (00:55→17:17)
[2019-02-09] MEDS: MISOPROSTOL 0.2 MG TABLET PV SCH (00:55)
[2019-02-09 01:04] LABS: INTERNATIONAL RATION (INR) 1.01; PROTHROMBIN TIME 13.3 SEC (11.4-15.4)
[2019-02-09 01:05] LABS: FIBRINOGEN 308 mg/dL (209-497); PARTIAL THROMBOPLASTIN TIME 29.8 SEC (23.5-35.8)
[2019-02-09 01:11] LABS: HEMATOCRIT 25.7 % (36.0-47.0); HEMOGLOBIN 8.5 g/dL (12.0-15.5); MEAN CORPUSCULAR HEMOGLOBIN 29.5 pg (27.0-33.4); MEAN CORPUSCULAR HGB CONC 33.1 g/dL (32.0-36.0); MEAN CORPUSCULAR VOLUME 89 fl (80-97); PLATELET COUNT 160 10^3/uL (150-450); RED BLOOD COUNT 2.88 10^6/uL (3.72-5.28); RED CELL DISTRIBUTION WIDTH 14.4 % (11.5-14.0); WHITE BLOOD COUNT 20.8 10^3/uL (4.0-10.5)
--- NOTE | 2019-02-09 01:16 | Delivery Summary ---
Del Sum A-C Datetime Report Generated by CPN: 02/09/2019 01:15 DELIVERY PERSONNEL DELIVERY PERSONNEL: [id number] Delivery Doctor:: Radha Wells MD Anesthesiologist:: Fabiana Vanegas MD BEHAVIORAL HEALTH CARE COORDINATOR:: Ildefonso Villa CRNA Labor and Delivery Nurse:: Mary Dempsey RN Weigh Boss:: Mary Dempsey RN Share Dairy Farmer/DATABASE SUPPORT: ST Mariam Share Dairy Farmer/DATABASE SUPPORT: Adamaris Hester, ST MATERNAL INFORMATION Delivery Anesthesia: Epidural Medications After Delivery: Pitocin Drip 20 Units/1000ml NSS Meds After Delivery Comment: x2 bags Delivery QBL: 685 Delivery QBL Comment: 50 noted in suction canister prior to AROM. 75 noted after AROM Maternal Complications: Abruptio Placenta LABOR SUMMARY EDC: 05/02/2019 00:00 No. Babies in Womb: 1 Attempted: No Labor Anesthesia: Epidural LABOR INFORMATION Reason for Induction: Demise Cervical Ripening Agents: Smith Balloon; Cytotec @ Oxytocin: Induction Steroids Given: None Reason Steroids Not Administered: Not Applicable MEMBRANES Membranes Rupture Method: Artificial Rupture of Membranes: 02/08/2019 20:52 Length of Rupture (hr): 0.02 Amniotic Fluid Color: Heavy Meconium Amniotic Fluid Amount: Small STAGES OF LABOR Stage 3 hr: 0 Stage 3 min: 0 VAGINAL DELIVERY Episiotomy: None Laceration #1: None Laceration Extension #1: N/A Laceration Repair: Not Applicable Sponge Count Correct: N/A CSECTION DELIVERY Primary Indication: Abruptio Placenta Secondary Indication: Other Other Secondary Indication: demise CSection Urgency: Non-Scheduled CSection Incidence: Primary Labor: Labor Elective: Nonelective CSection Incision: Lower Uterine Transverse BABY A INFORMATION Delivery Date/Time: 02/08/2019 20:53 Method of Delivery: Born in Route : No : N/A Forceps: N/A Vacuum Extraction: N/A PRESENTATION/POSITION BABY A Presentation: Cephalic Cephalic Presentation: Vertex Breech Presentation: N/A PLACENTA INFORMATION BABY A Placenta Delivery Time : 02/08/2019 20:53 Placenta Method of Delivery: Manual Removal Placenta Status: Delivered SCORES BABY A Heart Rate 1 min: Absent Resp Effort 1 min: Absent Reflex Irritability 1 min: No Response Muscle Tone 1 min: Flaccid Color 1 min: Blue/Pale Resuscitation Effort 1 min: N/A SCORE 1 MIN: 0 Heart Rate 5 min: Absent Resp Effort 5 min: Absent Reflex Irritability 5 min: No Response Muscle Tone 5 min: Flaccid Color 5 min: Blue/Pale Resuscitation Effort 5 min: N/A SCORE 5 MIN: 0 INFANT INFORMATION BABY A Gestational Age at Delivery: 28.1 Gestational Status: - <34 Weeks Infant Outcome : Stillborn Infant Sex: Female WEIGHT/LENGTH BABY A Birthweight (gm): 1040 Weight (lb): 2 Weight (oz): 5 Length (in): 13.00 Infant Length (cm): 33.02 CORD INFORMATION BABY A Cord Blood Taken: Yes-For Storage (Mom's Blood type +) BABY B INFORMATION : N/A
[2019-02-09 01:31] LABS: ABSOLUTE LYMPHOCYTES# (MANUAL) 3.1 10^3/uL (0.5-4.7); ABSOLUTE MONOCYTES # (MANUAL) 0.8 10^3/uL (0.1-1.4); ANISOCYTOSIS SLIGHT; BASOPHILS % (MANUAL) 0 % (0-2); EOSINOPHILS % (MANUAL) 0 % (0-6); LYMPHOCYTES % (MANUAL) 15 % (13-45); MONOCYTES % (MANUAL) 4 % (3-13); SEGMENTED NEUTROPHILS % (MAN) 81 % (42-78); TOTAL CELLS COUNTED 100
[2019-02-09 01:32] LABS: HYPOCHROMASIA 1+; PLATELET COMMENT ADEQUATE
[2019-02-09] MEDS: ACETAMINOPHEN 1,000 MG/100 ML RTUPB IV SCH ×3 (01:34→13:19)
[2019-02-09] MEDS: CEFAZOLIN 1 GM/D5W RTU 1 GM/50 ML RTUPB IV SCH ×2 (02:12→09:11)
[2019-02-09 06:12] LABS: ABSOLUTE LYMPHOCYTES (AUTO) 1.9 10^3/uL (0.5-4.7); ABSOLUTE NEUT (AUTO) 16.5 10^3/uL (1.7-8.2); BASOPHILS % (AUTO) 0.1 % (0-2); EOSINOPHILS % (AUTO) 0.1 % (0-6); HEMATOCRIT 24.7 % (36.0-47.0); HEMOGLOBIN 8.2 g/dL (12.0-15.5); LYMPHOCYTES % (AUTO) 9.6 % (13-45); MEAN CORPUSCULAR HEMOGLOBIN 29.8 pg (27.0-33.4); MEAN CORPUSCULAR HGB CONC 33.3 g/dL (32.0-36.0); MEAN CORPUSCULAR VOLUME 89 fl (80-97); MONOCYTES % (AUTO) 5.3 % (3-13); PLATELET COUNT 150 10^3/uL (150-450); RED BLOOD COUNT 2.76 10^6/uL (3.72-5.28); RED CELL DISTRIBUTION WIDTH 14.5 % (11.5-14.0); SEGMENTED NEUTROPHILS % (AUTO) 84.9 % (42-78); TOTAL CELLS COUNTED % (AUTO) 100 %; WHITE BLOOD COUNT 19.4 10^3/uL (4.0-10.5)
[2019-02-09 06:22] LABS: FIBRINOGEN 321 mg/dL (209-497); INTERNATIONAL RATION (INR) 1.02; PARTIAL THROMBOPLASTIN TIME 34.4 SEC (23.5-35.8); PROTHROMBIN TIME 13.4 SEC (11.4-15.4)
[2019-02-09] MEDS ORDERED: IRON SUCROSE COMPLEX INJ/PF 100 MG/5 ML SDV IV ONE (09:00)
[2019-02-09] MEDS: DOCUSATE SODIUM 100 MG CAPSULE PO SCH ×2 (09:12→17:17)
[2019-02-09] MEDS: PRENATAL VITAMIN W DHA CAPSULE PO SCH (09:12)
--- NOTE | 2019-02-09 09:51 | PDOC PROGRESS REPORT ---
Subjective-OB Progress Note for:: 02/09/19 Subjective: Pt is resting in bed, family at bedside. She is grieving appropriately, has been holding her baby. She c/o pain at incision, was unable to keep down her breakfast, phenergan was given per RN. FC to BSD, clear yellow urine. Physical Exam (OB) Vital Signs: Temp Pulse Resp BP Pulse Ox 98.6 F 73 14 142/82 H 100 02/09/19 08:11 02/09/19 08:11 02/09/19 08:11 02/09/19 08:11 02/09/19 08:11 Intake & Output 02/08/19 02/09/19 02/10/19 06:59 06:59 06:59 Intake Total 640 300 Output Total 1400 600 Balance -760 -300 Weight 61 kg - PIH/Pre-Eclampsia Clonus: Negative Headache: Absent - Dressing Removed: No Incision: Dressing - Lochia Lochia Amount: Scant < 10 ml Lochia Color: Rubra/Red - Abdomen Description: Soft Fundal Description: Firm, Midline Fundal Height: u/u - u/2 Objective-Diagnostic Laboratory: 02/09/19 05:38 02/08/19 01:05 02/08/19 02/08/19 02/08/19 01:05 13:46 18:45 WBC 14.6 H 20.7 H RBC 3.42 L 3.52 L Hgb 10.1 L 10.3 L Hct 30.9 L 31.5 L MCV 90 90 MCH 29.4 29.4 MCHC 32.5 32.8 RDW 14.1 H 14.4 H Plt Count 178 186 Seg Neutrophils % 78.4 H Not Reportable Blood Type A POSITIVE Antibody Screen NEGATIVE 02/09/19 02/09/19 00:39 05:38 WBC 20.8 H 19.4 H RBC 2.88 L 2.76 L Hgb 8.5 L 8.2 L Hct 25.7 L 24.7 L MCV 89 89 MCH 29.5 29.8 MCHC 33.1 33.3 RDW 14.4 H 14.5 H Plt Count 160 150 Seg Neutrophils % Not Reportable 84.9 H Blood Type Antibody Screen Assessment and Plan(PN) - Assessment and Plan (1) IUFD at 20 weeks or more of gestation Is this a current diagnosis for this admission?: Yes (2) Status post delivery Is this a current diagnosis for this admission?: Yes (3) Failed induction of labor Qualifiers: Failed induction of labor type: unspecified Qualified Code(s): O61.9 - Failed induction of labor, unspecified Is this a current diagnosis for this admission?: Yes (4) Tetrahydrocannabinol (THC) use disorder, mild, abuse Is this a current diagnosis for this admission?: Yes - Time Spent with Patient Time with patient: Less than 15 minutes Medications reviewed and adjusted accordingly: Yes - Disposition Anticipated Discharge: Home Within: within 48 hours
[2019-02-09] MEDS ORDERED: DIPH/PERTUSS(ACELL)/TETANUS VAC/PF 0.5 ML SYR (>=10YO) IM PRN (13:30)
[2019-02-10] MEDS: IBUPROFEN 800 MG TABLET PO SCH ×3 (01:07→11:35)
[2019-02-10] MEDS: OXYCODONE-ACETAMINOPHEN 5-325 MG TABLET PO PRN (06:38)
[2019-02-10 09:16] LABS: HEMATOCRIT 25.4 % (36.0-47.0); HEMOGLOBIN 8.4 g/dL (12.0-15.5); MEAN CORPUSCULAR HEMOGLOBIN 29.5 pg (27.0-33.4); MEAN CORPUSCULAR VOLUME 90 fl (80-97); RED BLOOD COUNT 2.84 10^6/uL (3.72-5.28); RED CELL DISTRIBUTION WIDTH 14.5 % (11.5-14.0); WHITE BLOOD COUNT 23.8 10^3/uL (4.0-10.5)
[2019-02-10 09:39] LABS: ABSOLUTE LYMPHOCYTES# (MANUAL) 2.6 10^3/uL (0.5-4.7); BASOPHILS % (MANUAL) 0 % (0-2); EOSINOPHILS % (MANUAL) 0 % (0-6); LYMPHOCYTES % (MANUAL) 10 % (13-45); MONOCYTES % (MANUAL) 4 % (3-13); SEGMENTED NEUTROPHILS % (MAN) 85 % (42-78); TOTAL CELLS COUNTED 100
[2019-02-10 09:42] LABS: ANISOCYTOSIS SLIGHT; HYPOCHROMASIA SLIGHT; PLATELET CLUMPS PRESENT; PLATELET COMMENT ADEQUATE; PLATELET COUNT 231 10^3/uL (150-450); POLYCHROMASIA 1+
[2019-02-10] MEDS: PRENATAL VITAMIN W DHA CAPSULE PO SCH (09:59)
[2019-02-10] MEDS: DOCUSATE SODIUM 100 MG CAPSULE PO SCH (09:59)
--- NOTE | 2019-02-10 10:34 | PDOC DISCHARGE SUMMARY ---
Final Diagnosis Discharge Date: 02/10/19 - POD#2, pt states she is feeling fine this morning, no c/o dizziness, she is up out of bed this morning and dressed. She desires to go home today. s/p Primary for abruption with IUFD. Pt did receive 1 unit PRBC and 3 doses of Ancef post , she is A+, Rubella Immune. +THC on admission. - Final Diagnosis (1) Placental abruption in third trimester Is this a current diagnosis for this admission?: Yes (2) Failed induction of labor Is this a current diagnosis for this admission?: Yes (3) IUFD at 20 weeks or more of gestation Is this a current diagnosis for this admission?: Yes (4) Status post delivery Is this a current diagnosis for this admission?: Yes (5) Tetrahydrocannabinol (THC) use disorder, mild, abuse Is this a current diagnosis for this admission?: Yes Discharge Data - Discharge Medication Prescriptions: Ferrous Sulfate [Albafort] 325 mg PO DAILY #30 tablet Ibuprofen [Motrin 800 mg Tablet] 800 mg PO Q6 #60 tablet Oxycodone HCl/Acetaminophen [Percocet 5-325 mg Tablet] 1 tab PO Q4HP PRN #30 tablet PRN Reason: Pain Scale Of 3 Home Medications: Doxylamine Succinate/Vit B6 [Diclegis Dr 10-10 mg Tablet] 1 tab PO TID 02/08/19 Ferrous Sulfate [Albafort] 325 mg PO DAILY #30 tablet 02/10/19 Ibuprofen [Motrin 800 mg Tablet] 800 mg PO Q6 #60 tablet 02/10/19 Oxycodone HCl/Acetaminophen [Percocet 5-325 mg Tablet] 1 tab PO Q4HP PRN #30 tablet 02/10/19 Reason(s) for Admission: Induction of Labor, Demise Admission Note: Failed IOL for IUFD Intrapartum Procedure(s): : Low Cervical, Transverse - Data Baby 1 at 1 minute: 0 at 5 minutes: 0 Home with Mother: No - IUFD Complications: Yes - placental abruption - Diagnosis Test Laboratory: Temp Pulse Resp BP Pulse Ox 98.6 F 76 16 139/56 H 100 02/10/19 08:41 02/10/19 08:41 02/10/19 08:41 02/10/19 08:41 02/10/19 08:41 02/08/19 02/08/19 02/08/19 01:05 03:53 09:00 RBC 3.33 L 2.89 L Hgb 10.3 L 8.8 L Hct 30.9 L 26.7 L Urine Opiates Screen UNCONFIRMED POSITIVE 02/08/19 02/08/19 02/09/19 13:46 18:45 00:39 RBC 3.42 L 3.52 L 2.88 L Hgb 10.1 L 10.3 L 8.5 L Hct 30.9 L 31.5 L 25.7 L Urine Opiates Screen 02/09/19 02/10/19 05:38 09:01 RBC 2.76 L 2.84 L Hgb 8.2 L 8.4 L Hct 24.7 L 25.4 L Urine Opiates Screen - Discharge information/Instructions Discharge Activity: Activity As Tolerated, No Driving, No Lifting Over 10 Pounds, Pelvic Rest Discharge Diet: As Tolerated, Regular Disposition: HOME, SELF-CARE Follow up with: [facility] in: 1, Weeks - for Incision check
[2019-02-10 12:21] VITALS: BP 132/82
== END 2019-02-10 12:05 | disposition home or self-care (01) | DRG 786 ==
LOC: LC 00:40 → LR 01:11 → 2N 02-09 00:15
PROVIDERS: ADMIT Obstetrics & Gynecology; ATTEND Obstetrics & Gynecology
PROC: 10D00Z1 Extraction of Products of Conception, Low, Open Approach (ICD-10-PCS; principal; 2019-02-08)
PROC: 30233N1 Transfusion of Nonautologous Red Blood Cells into Peripheral Vein, Percutaneous Approach (ICD-10-PCS; 2019-02-08)
PROC: 3E0P7VZ Introduction of Hormone into Female Reproductive, Via Natural or Artificial Opening (ICD-10-PCS; 2019-02-08)
PROC: 3E033VJ Introduction of Other Hormone into Peripheral Vein, Percutaneous Approach (ICD-10-PCS; 2019-02-08)
PROC: 10907ZC Drainage of Amniotic Fluid, Therapeutic from Products of Conception, Via Natural or Artificial Opening (ICD-10-PCS; 2019-02-08)
PROC: 0U7C7ZZ Dilation of Cervix, Via Natural or Artificial Opening (ICD-10-PCS; 2019-02-08)
DX: O36.4XX0 Maternal care for intrauterine death, not applicable or unspecified (principal); O45.93 Premature separation of placenta, unspecified, third trimester; O99.323 Drug use complicating pregnancy, third trimester; O75.2 Pyrexia during labor, not elsewhere classified; O61.0 Failed medical induction of labor; Z3A.28 28 weeks gestation of pregnancy; Z37.1 Single stillbirth; F19.10 Other psychoactive substance abuse, uncomplicated; O99.02 Anemia complicating childbirth; D72.829 Elevated white blood cell count, unspecified; Z91.030 Bee allergy status; O77.0 Labor and delivery complicated by meconium in amniotic fluid
CPT/HCPCS: 1961; 36415; 36430; 76815; 80053; 80307; 80349; 81001; 81240; 81241; 82150; 83690; 85025; 85384; 85610; 85730; 86850; 86900; 86901; 86920; 88307; 94760; 94799; G0480; J0131; J0690; J1756; J1885; J2210; J2250; J2270; J2370; J2550; J2590; J3010; J3490; P9016; S0028

== ENCOUNTER 2020-05-12 12:05 | Outpatient (CLI) | payer MEDICAID | END 2020-05-12 12:57 | disposition home or self-care (01) | LOC: LC 12:05 | PROVIDERS: ATTEND Obstetrics & Gynecology | DX: O36.5930 Maternal care for other known or suspected poor fetal growth, third trimester, not applicable or unspecified (principal); Z3A.34 34 weeks gestation of pregnancy | CPT/HCPCS: 59025 ==

== ENCOUNTER 2020-05-22 02:52 | Outpatient (CLI) | payer MEDICAID ==
[2020-05-22 03:52] LABS: APPEARANCE,URINE SLIGHTLY-CLOUDY; BILIRUBIN,URINE NEGATIVE (NEGATIVE); COLOR,URINE YELLOW; GLUCOSE, URINE NEGATIVE (NEGATIVE); KETONES,URINE NEGATIVE (NEGATIVE); LEUKOCYTE ESTERASE,URINE SMALL (NEGATIVE); NITRITE,URINE NEGATIVE (NEGATIVE); PROTEIN,URINE 30 mg/dL (NEGATIVE); URINE SPECIFIC GRAVITY 1.023; UROBILINOGEN,URINE NEGATIVE mg/dL (<2.0)
[2020-05-22 04:07] LABS: URINE AMPHETAMINES SCREEN NEGATIVE; URINE BARBITURATES SCREEN NEGATIVE; URINE BENZODIAZEPINES SCREEN NEGATIVE; URINE COCAINE SCREEN NEGATIVE; URINE METHADONE SCREEN NEGATIVE; URINE PHENCYCLIDINE SCREEN NEGATIVE
[2020-05-22 04:13] LABS: URINE MARIJUANA (THC) SCREEN UNCONFIRMED POSITIVE
--- NOTE | 2020-05-22 06:12 | RADIOLOGY REPORT (SQ) ---
Obstetric ultrasound: 05/22/2020 5:09 AM QUALITY IMPROVEMENT COORDINATOR (RN) HISTORY: 24-year-old female with vaginal bleeding. TECHNIQUE: Multiple grayscale and color Doppler images of the pelvis were obtained transabdominally. COMPARISON: None available for this . FINDINGS: A single intrauterine gestation is seen, which is cephalic in position. The placenta is anterior in location, and free of internal os of the cervix. No obvious retroplacental hemorrhage is seen. The placenta demonstrates grade 2/3 changes. The placenta may be in close proximity to the internal os of the cervix. The cervix measures at least 4.6 cm in length. The estimated heart rate is approximately 128 bpm. IMPRESSION: There is a single intrauterine gestation which is currently cephalic in position. There are grade 2/3 changes at the anterior placenta. Interval follow-up with an obstetric care provider is recommended.
== END 2020-05-22 06:28 | disposition home or self-care (01) ==
LOC: LC 02:52
PROVIDERS: ATTEND Obstetrics & Gynecology Gynecology
DX: O47.03 False labor before 37 completed weeks of gestation, third trimester (principal); O46.93 Antepartum hemorrhage, unspecified, third trimester; Z3A.35 35 weeks gestation of pregnancy; Z91.030 Bee allergy status; Z91.02 Food additives allergy status; Z87.891 Personal history of nicotine dependence
CPT/HCPCS: 59025; 81001; 80307; 76815; G0480 ×2; 80349

== ENCOUNTER 2020-05-23 07:46 | Inpatient (IN) | payer MEDICAID ==
[2020-05-23] MEDS ORDERED: RINGERS SOLUTION,LACTATED 1,000 ML IV ONE (08:14)
[2020-05-23] MEDS ORDERED: RINGERS SOLUTION,LACTATED 500 ML IV ONE (08:14)
[2020-05-23] MEDS ORDERED: NORMAL SALINE 250 ML IV PRN ×2 (08:17)
[2020-05-23] MEDS ORDERED: PROPOFOL INJ 200 MG/20 ML VIAL IV ONE (08:37)
[2020-05-23] MEDS ORDERED: MIDAZOLAM 2 MG/2 ML INJ ONE (08:37)
[2020-05-23] MEDS ORDERED: ONDANSETRON HCL INJ/PF 4 MG/2 ML SDV ONE (08:37)
[2020-05-23] MEDS ORDERED: MORPHINE SULFATE 10 MG/ML INJ ONE ×2 (08:37→10:00)
[2020-05-23] MEDS ORDERED: FENTANYL CITRATE INJ/PF 250 MCG/5 ML AMPULE ONE (08:37)
[2020-05-23] MEDS ORDERED: CEFAZOLIN 2 GM/D5W RTU 2 GM/50 ML RTUPB IV ONE (08:51)
[2020-05-23 08:54] LABS: ABSOLUTE BASOPHILS # (AUTO) 0.1 10^3/uL (0.0-0.2); ABSOLUTE LYMPHOCYTES (AUTO) 3.1 10^3/uL (0.5-4.7); ABSOLUTE MONOCYTES (AUTO) 0.8 10^3/uL (0.1-1.4); BASOPHILS % (AUTO) 0.5 % (0-2); EOSINOPHILS % (AUTO) 0.4 % (0-6); HEMATOCRIT 35.7 % (36.0-47.0); HEMOGLOBIN 12.1 g/dL (12.0-15.5); LYMPHOCYTES % (AUTO) 30.9 % (13-45); MEAN CORPUSCULAR HEMOGLOBIN 31.5 pg (27.0-33.4); MEAN CORPUSCULAR HGB CONC 33.9 g/dL (32.0-36.0); MEAN CORPUSCULAR VOLUME 93 fl (80-97); MONOCYTES % (AUTO) 7.8 % (3-13); PLATELET COUNT 285 10^3/uL (150-450); RED BLOOD COUNT 3.85 10^6/uL (3.72-5.28); SEGMENTED NEUTROPHILS % (AUTO) 60.4 % (42-78); TOTAL CELLS COUNTED % (AUTO) 100 %
[2020-05-23] MEDS ORDERED: OXYTOCIN 10 UNIT/ML VIAL ONE (08:57)
[2020-05-23 08:58] LABS: INTERNATIONAL RATION (INR) 0.85; PROTHROMBIN TIME 11.8 SEC (11.4-15.4)
[2020-05-23 08:59] LABS: FIBRINOGEN 480 mg/dL (209-497); PARTIAL THROMBOPLASTIN TIME 29.4 SEC (23.5-35.8)
--- NOTE | 2020-05-23 08:59 | RADIOLOGY REPORT (SQ) ---
EXAM DESCRIPTION: U/S OB LIMITED IMAGES COMPLETED DATE/TIME: 05/23/2020 8:47 am REASON FOR STUDY: no heart tones COMPARISON: 05/22/2020 TECHNIQUE: Limited transabdominal grayscale ultrasound for evaluation of specific requested obstetri leti parameters. LIMITATIONS: None. FINDINGS: Extremely limited imaging performed to assess for cardiac activity. No cardiac motion det ected. IMPRESSION: No cardiac motion detected. Per limited history provided by the cylinder batcher, clin ical team aware and patient en route to surgery. TECHNICAL DOCUMENTATION: JOB ID: [id number] 2010 [employer]- All Rights Reserved Reading location - IP/workstation name: [email or web address]
--- NOTE | 2020-05-23 09:05 | Admission Physical ---
Datetime Report Generated by CPN: 05/23/2020 09:04 CURRENT ADMISSION Chief Complaint: Uterine Contractions; Vaginal Bleeding Indication for Induction: Not Applicable Admit Impression : , Intrauterine ; Demise; Vaginal Bleeding; Obstetrical Complication Admit Impression- Other: abdomen firm Admit Plan: Admit to Unit; Initiate Section Protocol ALLERGIES Medication Allergies: No Medication Allergies: bee pollen (05/23/2020) Latex: No Latex Allergies Food Allergies: teriyaki sauce Environmental Allergies: bee pollen OBSTETRICAL HISTORY EDC: 06/23/2020 00:00 : 2 Para: 1 Term: 0 : 0 SAB: 0 IAB: 0 Ectopic: 0 Livin Cesareans: 1 VBACs: 0 Multiple Births: 0 Gestational Diabetes: No Rh Sensitization: No Incompetent Cervix: No NADEGE: No Infertility: No ART Treatment: No Uterine Anomaly: No IUGR: Yes Hx Previous C/S: Yes Macrosomia: No Hx Loss/Stillborn: Yes PIH: No Hx : No Placenta Previa/Abruption: Yes Depression/PP Depression: No PTL/PROM: Yes Post Hemorrhage: No Current Procedures: Ultrasound Obstetrical History Comments: 01/2019 placental abruption, primary c/section g2- current IUGR SEE RECORDS Alcohol: No Marijuana : No Cocaine: No Other Illicit Drugs: No Cigarettes: Former Smoker. [id number] MEDICAL HISTORY Diabetes: No Blood Transfusion: Yes Pulmonary Disease (Asthma, TB): Yes Breast Disease: No Hypertension: No Broomcorn Thresher Surgery: Yes Heart Disease: No Hosp/Surgery: Yes (Annotations: Data stored by [facility] on behalf of user) Autoimmune Disorder: No Anesthetic Complications: No Kidney Disease: No Abnormal Pap Smear: No Neuro/Epilepsy: No Psychiatric Disorders: No Other Medical Diseases: No Hepatitis/Liver Disease: No Significant Family History: No Varicosities/Phlebitis: No Trauma/Violence : No Medical History Comments: childhood asthma INFECTIOUS HISTORY Gonorrhea: No Chlamydia: No Syphilis: No HIV/AIDS Exposure: No HPV: No PHYSICAL EXAM General: Abnormal HEENT: Normal Neurologic: Normal Thyroid: Deferred Heart: Deferred Lungs: Deferred Breast: Deferred Back: Normal Abdomen: Normal Genitourinary Exam: Normal Extremities: Normal DTRs: Deferred Pelvic Type: Inadequate Vital Signs: Reviewed; Within Normal Limits VAGINAL EXAM Dilatation: 1 Effacement: 80 Station: -1 Contraction Comments: constant MEMBRANES Pooling: Negative Membranes: Intact FETUS A EGA: 35.4 FHR- Baseline: 0 FHR Comments: no FHT on sono, checked by CNEdis, Dr Herbert and rental boats caretaker Admit Comment: at 35w4d with previous abruption at 27w resulting in demies and c/s. presents with hard abdomen, crying in pain. Dr Cao called; Dr Herbert and Dr Cao arrived at the same time. pt hemodynaically stable but abdomen firm and no FHT. pt prepped for surgery d/t high suspicion of abruption. PLANS FOR LABOR AND DELIVERY Circumcision: N/A INFORMED CONSENT Assignment: Khurram Herbert MD Signature: with User ID: [email or web address] : with User ID: [email or web address]
[2020-05-23 09:08] LABS: APPEARANCE,URINE SLIGHTLY-CLOUDY; BILIRUBIN,URINE NEGATIVE (NEGATIVE); COLOR,URINE YELLOW; GLUCOSE, URINE NEGATIVE (NEGATIVE); KETONES,URINE NEGATIVE (NEGATIVE); LEUKOCYTE ESTERASE,URINE MODERATE (NEGATIVE); NITRITE,URINE NEGATIVE (NEGATIVE); PROTEIN,URINE NEGATIVE (NEGATIVE); URINE SPECIFIC GRAVITY 1.018; UROBILINOGEN,URINE NEGATIVE mg/dL (<2.0)
[2020-05-23 09:18] LABS: URINE AMPHETAMINES SCREEN NEGATIVE; URINE BARBITURATES SCREEN NEGATIVE; URINE BENZODIAZEPINES SCREEN NEGATIVE; URINE COCAINE SCREEN NEGATIVE; URINE METHADONE SCREEN NEGATIVE; URINE PHENCYCLIDINE SCREEN NEGATIVE
[2020-05-23 09:20] LABS: URINE MARIJUANA (THC) SCREEN UNCONFIRMED POSITIVE
[2020-05-23] MEDS ORDERED: MEASLES,MUMPS&RUBELLA VACC/PF 0.5 ML VIAL SUBCUT PRN (09:34)
[2020-05-23] MEDS ORDERED: RINGERS SOLUTION,LACTATED 1,000 ML IV PRN (09:34)
[2020-05-23] MEDS ORDERED: ACETAMINOPHEN 325 MG TABLET PO PRN (09:34)
[2020-05-23] MEDS ORDERED: DIPH/PERTUSS(ACELL)/TETANUS VAC/PF 0.5 ML SYR (>=10YO) IM PRN (09:34)
[2020-05-23] MEDS ORDERED: OXYCODONE-ACETAMINOPHEN 5-325 MG TABLET PO PRN (09:34)
[2020-05-23] MEDS ORDERED: SIMETHICONE 80 MG TAB.CHEW PO PRN (09:34)
[2020-05-23] MEDS ORDERED: HYDROMORPHONE HCL INJ/PF 2 MG/ML AMPULE IV PRN (09:34)
[2020-05-23] MEDS ORDERED: PROMETHAZINE HCL INJ 25 MG/1 ML VIAL IV PRN (09:34)
[2020-05-23] MEDS ORDERED: ACETAMINOPHEN 1,000 MG/100 ML RTUPB IV PRN (09:34)
[2020-05-23] MEDS ORDERED: OXYTOCIN/0.9 % SODIUM CHLORIDE 30 UNIT/500 ML RTUINJ IV PRN (09:34)
[2020-05-23] MEDS ORDERED: OXYTOCIN/0.9 % SODIUM CHLORIDE 30 UNIT/500 ML RTUINJ ONE (09:39)
--- NOTE | 2020-05-23 09:50 | Operative Report ---
Operative Report DATE OF SURGERY: 05/23/20 PREOPERATIVE DIAGNOSIS: suspected abruption with absent heart tones POSTOPERATIVE DIAGNOSIS: Abruption with demise OPERATION: Repeat via low transverse uterine incision SURGEON: CINDY MIDDLETON ANESTHESIA: GA TISSUE REMOVED OR ALTERED: Placenta COMPLICATIONS: demise, placental abruption ESTIMATED BLOOD LOSS: 250 cc INTRAOPERATIVE FINDINGS: Placenta from the uterine wall with clot behind the placenta. without any evidence of life. PROCEDURE: Patient presented with active contractions and abdominal pain. Ultrasound showed no heart tones. For maternal interest we proceeded with a C- section. This was done under general anesthesia. The patient was taken the OR and placed in a supine position. A Smith had been placed. Her abdomen was prepared and draped in sterile fashion. General anesthesia was induced. A low transverse incision was made and carried down the level of fascia. The fascia was nicked in the midline. The fascial incision was extended bilaterally using curved Ayon scissors. The fascia was off the rectus muscles using sharp and blunt dissection. The rectus muscles were in the midline peritoneum entered without incident. The peritoneal incision was extended superiorly and inferiorly taking care not to injure bladder. Bladder blade placed lower uterine segment was identified and a serosal incision was made creating a bladder flap. Low transverse uterine incision was made with a knife and extended with fingertips. The baby was delivered with some fundal pressure. Cord was doubly clamped and cut and the infant was passed off to the pediatricians. There was no evidence of life. Cord blood was obtained. The placenta was extracted. It was noted to be from the uterus with a large clot behind the placenta. Uterus was wiped clean with a moist lap sponge. Tubes and ovaries were normal. The uterus was closed with a running chromic suture in a locking fashion. A second 0 chromic was used to imbricate the first. The serosa was closed with a running 2-0 chromic stitch. Hemostasis was quite good. The pelvis was irrigated and suctioned free of fluid the uterus was replaced into the abdomen. The anterior abdominal wall peritoneum was closed with a running 2-0 chromic stitch. Subfascial tissues were inspected for bleeding the fascia was closed with a running 0 Vicryl in 2 segments. The wound was irrigated. The Janay's layer was closed with a 2-0 plain gut stitch and the skin closed with a running subcuticular 4-0 undyed Vicryl stitch. The wound was dressed. Patient was brought out of anesthesia and taken recovery in stable condition.
[2020-05-23] MEDS ORDERED: FENTANYL CITRATE INJ/PF 100 MCG/2 ML AMPUL ONE (10:15)
[2020-05-23] MEDS ORDERED: KETOROLAC TROMETHAMINE INJ/PF 30 MG/1 ML SDV ONE (10:40)
[2020-05-23] MEDS: KETOROLAC TROMETHAMINE INJ/PF 30 MG/1 ML SDV IV SCH ×2 (10:41→18:50)
[2020-05-23] MEDS ORDERED: ACETAMINOPHEN 1,000 MG/100 ML RTUPB IV ONE (10:56)
[2020-05-23] MEDS ORDERED: SUCCINYLCHOLINE CHLORIDE INJ 200 MG/10 ML VIAL ONE (12:01)
--- NOTE | 2020-05-23 12:12 | Birth Certificate Data ---
Cert Data Datetime Report Generated by CPN: 05/23/2020 12:12 CERTIFICATE DATA Delivery Provider: Khurram Herbert MD (05/23/2020 09:04:Cheikh Schmidt RN) 47a. Care: Yes (05/12/2020 12:07:Crys Rivera RN) 47b. Date of First Visit: 12/11/2019 00:00 (05/12/2020 12:07:Crys Rivera RN) 47c. Date of Last Visit: 05/12/2020 00:00 (05/12/2020 12:07:Crys Rivera RN) 47d. Number of Visits: 9 (05/12/2020 12:07:Crys Rivera RN) 48a. Number of Prev Live Births: 0 (05/12/2020 12:07:Isa Escalante RN) 48b. Now Livin (05/12/2020 12:07:Isa Escalante RN) 48c. Live Births Now : 0 (05/12/2020 12:07:QS system process) 48e. Losses: 2 (05/12/2020 12:07:Crys Rivera RN) 48f. Date of Last Preg Loss: 05/23/2020 00:00 (05/12/2020 12:07:Crys Rivera RN) RISK FACTORS IN THIS 49a. Diabetes: No (05/12/2020 12:07:Julianne Cee RN) 49b. Hypertension: No (05/12/2020 12:07:Julianne Cee RN) 49c. Previous Births: 0 (05/12/2020 12:07:Isa Escalante RN) 49d. Stillborns: Yes (05/12/2020 12:07:Isa Escalante RN) 49d. IUGR: Yes (05/12/2020 12:07:Julianne Cee RN) 49e. Infertility Treatment: No (05/12/2020 12:07:Julianne Cee RN) 49f. Previous Cesareans: 1 (05/12/2020 12:07:Isa Escalante RN) Mother's Height 50b. Height Inches: 64 (05/23/2020 11:55:QS system process) Mother's Weight 51a. Pre- Weight (lbs): 115 (05/12/2020 12:07:Isa Escalante RN) 51b. Weight at Delivery (lbs): 156 (05/23/2020 11:55:QS system process) 52. Dt Last Normal Menses Began: 09/17/2019 00:00 (05/12/2020 12:07:Isa Escalante RN) Infections Present/Treated 53a. Gonorrhea: No (05/12/2020 12:07:Julianne Cee RN) Results this Hospital Visit : Negative (05/12/2020 12:07:Crys Rivera RN) 53b. Syphilis: No (05/12/2020 12:07:Julianne Cee RN) 53c. Chlamydia: No (05/12/2020 12:07:Julianne Cee RN) Results this Hospital Visit: Negative (05/12/2020 12:07:Crys Rivera RN) Results this Hospital Visit: Negative (05/12/2020 12:07:Crys Rivera RN) 53e. Hepatitis C: Negative (05/12/2020 12:07:Crys Rivera RN) 53h. Mother Tested for HBsAG: Yes (05/12/2020 12:07:Julianne Cee RN) 53i. Date Tested: 12/24/2019 00:00 (05/12/2020 12:07:Crys Rivera RN) 53j. Test Result: Negative (05/12/2020 12:07:Crys Rivera RN) Obstetric Procedures 54a, b, c. Obstetric Procedures: Ultrasound (05/12/2020 12:07:Isa Escalante RN) Cigarette Smoking Cigarette Smoking: Former Smoker. [id number] (05/12/2020 12:07:Julianne Cee RN) 55a. 3 Months Before Preg - Ci (05/12/2020 12:07:Julianne Cee RN) 55b. 1st Trimester of Preg- Ci (05/12/2020 12:07:Julianne Cee RN) 55c. 2nd Trimester of Preg- Ci (05/12/2020 12:07:Julianne Cee RN) 55d. 3rd Trimester of Preg- Ci (05/12/2020 12:07:Julianne Cee RN) Onset of Labor 56a. PROM >12 Hrs: 0.00 (05/12/2020 12:07:QS system process) 57a. Induction of Labor: N/A (05/12/2020 12:07:Crys Rivera RN) 57c. Non-Vertex Presentation A: Vertex (05/12/2020 12:07:Cony Mueller RN) 57d. Steroids - Lung Mat: None (05/12/2020 12:07:Crys Rivera RN) 57d. Steroids - Lung Mat: Not Applicable (05/12/2020 12:07:Crys Rivera RN) 57g. Moderate/Heavy Meconium: Bloody (05/12/2020 12:07:Cheikh Schmidt RN) 57h. Intolerance of Labor: Abruptio Placenta (05/12/2020 12:07:Crys Rivera RN) : Other (05/12/2020 12:07:Crys Rivera RN) : IUFD (05/12/2020 12:07:Crys Rivera RN) 57i. Epidural/Spinal Anesthesia: None (05/12/2020 12:07:Crys Rivera RN) Method of Delivery 58a. Forceps - Unsuccessful A: N/A (05/12/2020 12:07:Cheikh Schmidt RN) 58b. Vacuum - Unsuccessful A: N/A (05/12/2020 12:07:Cheikh Schmidt RN) 58c. Presentation at 58c. Presentation at - A : Vertex (05/12/2020 12:07:Cony Mueller RN) 58c. Presentation at - A : N/A (05/12/2020 12:07:Cony Mueller RN) 58c. Presentation at - A : Cephalic (05/12/2020 12:07:Cony Mueller RN) Final Route and Method of Del 58d. Baby A Route/Delivery: (05/12/2020 12:07:Crys Sales, RN) 58e. Trial of Labor Attempted: No (05/12/2020 12:07:Crys Sales, RN) 58e. Trial of Labor Attempted A: N/A (05/12/2020 12:07:Crys Sales, RN) 58e. Trial of Labor Attempted B: N/A (05/12/2020 12:07:Crys Sales, RN) Maternal Morbidity 59b. 3rd or 4th Degree Lacs: None (05/12/2020 12:07:Crys Sales, RN) 61. GA at Delivery Baby A: 35.4 (05/12/2020 12:07:Cheikh Schmidt RN) : Late - 34- 36.6 Weeks (05/12/2020 12:07:QS system process)
--- NOTE | 2020-05-23 12:12 | Delivery Summary ---
Del Sum A-C Datetime Report Generated by CPN: 05/23/2020 12:12 DELIVERY PERSONNEL DELIVERY PERSONNEL: [id number] Delivery Doctor:: Khurram Herbert MD ASSOCIATE WEB DEVELOPER:: Ildefonso Villa CRNA Labor and Delivery Nurse:: Cheikh Schmidt RNkersey department supervisor Nurse:: Cony Mueller RN Heart Nurse:: Cheikh Schmidt RN Insurance Claim Representative:: Dr. Luis E Smithtal Nursery Nurse:: Dinorah Silverman RN Rn Wound Care/SUPERVISOR GENERAL: Lisha Polanco CST Rn Wound Care/SUPERVISOR GENERAL: Gina Velasco CST Additional Personnel: : Tiffany Granado CRNA MATERNAL INFORMATION Delivery Anesthesia: General Medications After Delivery: Pitocin 30 Units in 500ml NS/D5W Delivery QBL: 710 Delivery QBL Comment: 710 Maternal Complications: Abruptio Placenta LABOR SUMMARY EDC: 06/23/2020 00:00 No. Babies in Womb: 1 Attempted: No Labor Anesthesia: None LABOR INFORMATION Reason for Induction: Not Applicable Oxytocin: N/A Group B Beta Strep: Unknown Steroids Given: None Reason Steroids Not Administered: Not Applicable MEMBRANES Membranes Rupture Method: Artificial Rupture of Membranes: 05/23/2020 08:54 Length of Rupture (hr): 0.00 Amniotic Fluid Color: Bloody Amniotic Fluid Amount: Moderate Amniotic Fluid Odor: Normal STAGES OF LABOR Stage 3 hr: 0 Stage 3 min: 1 VAGINAL DELIVERY Episiotomy: None Laceration #1: None Laceration Extension #1: N/A Laceration Repair: Not Applicable Sponge Count Correct: N/A Sharps Count Correct: N/A CSECTION DELIVERY Primary Indication: Abruptio Placenta Secondary Indication: Other Other Secondary Indication: IUFD CSection Urgency: Emergency CSection Incidence: Repeat Labor: No Labor Elective: Nonelective CSection Incision: Lower Uterine Transverse BABY A INFORMATION Delivery Date/Time: 05/23/2020 08:54 Method of Delivery: Nurse Controlled Delivery: No Born in Route : No : N/A Forceps: N/A Vacuum Extraction: N/A Shoulder Dystocia : No PRESENTATION/POSITION BABY A Presentation: Cephalic Cephalic Presentation: Vertex Breech Presentation: N/A PLACENTA INFORMATION BABY A Placenta Delivery Time : 05/23/2020 08:55 Placenta Method of Delivery: Manual Removal Placenta Status: Delivered SCORES BABY A Heart Rate 1 min: Absent Resp Effort 1 min: Absent Reflex Irritability 1 min: No Response Muscle Tone 1 min: Flaccid Color 1 min: Blue/Pale Resuscitation Effort 1 min: Tactile Stimulation SCORE 1 MIN: 0 INFANT INFORMATION BABY A Gestational Age at Delivery: 35.4 Gestational Status: Late - 34- 36.6 Weeks Outcome : Stillborn Infant Sex: Male CORD INFORMATION BABY A No. Cord Vessels: 3 Nuchal Cord : N/A Infant Suction: None ASSESSMENT BABY A Skin to Skin: No BABY B INFORMATION : N/A SIGNATURES : I was personally available for consultation and serving as supervising physician for the MLP.
[2020-05-23] MEDS ORDERED: PROMETHAZINE HCL INJ 25 MG/1 ML VIAL ONE (13:15)
[2020-05-23] MEDS ORDERED: OXYCODONE-ACETAMINOPHEN 5-325 MG TABLET ONE (13:15)
[2020-05-23] MEDS: OXYCODONE-ACETAMINOPHEN 5-325 MG TABLET PO PRN (18:51)
[2020-05-23] MEDS: DOCUSATE SODIUM 100 MG CAPSULE PO SCH (18:51)
[2020-05-24] MEDS: KETOROLAC TROMETHAMINE INJ/PF 30 MG/1 ML SDV IV SCH (01:10)
[2020-05-24] MEDS: OXYCODONE-ACETAMINOPHEN 5-325 MG TABLET PO PRN ×2 (01:11→05:27)
[2020-05-24] MEDS: IBUPROFEN 800 MG TABLET PO SCH ×2 (05:25→12:30)
[2020-05-24 07:00] LABS: HEMATOCRIT 28.1 % (36.0-47.0); MEAN CORPUSCULAR HEMOGLOBIN 31.4 pg (27.0-33.4); MEAN CORPUSCULAR VOLUME 93 fl (80-97); PLATELET COUNT 221 10^3/uL (150-450); RED BLOOD COUNT 3.03 10^6/uL (3.72-5.28); RED CELL DISTRIBUTION WIDTH 12.9 % (11.5-14.0); WHITE BLOOD COUNT 12.5 10^3/uL (4.0-10.5)
[2020-05-24 07:08] LABS: HEMOGLOBIN 9.5 g/dL (12.0-15.5)
--- NOTE | 2020-05-24 09:23 | PDOC PROGRESS REPORT ---
Subjective-OB Progress Note for:: 05/24/20 Subjective: sitting up in bed ready to eat, pain under control, no gas, OOB and voiding, baby at BS Physical Exam (OB) Vital Signs: Temp Pulse Resp BP Pulse Ox 98.2 F 80 16 124/56 L 100 05/24/20 07:35 05/24/20 07:35 05/24/20 07:35 05/24/20 07:35 05/24/20 07:35 Intake & Output 05/23/20 05/24/20 05/25/20 06:59 06:59 06:59 Intake Total 1670 Output Total 300 Balance 1370 Weight 70.5 kg - PIH/Pre-Eclampsia Clonus: Negative Headache: Absent Epigastric Pain: No Visual Changes: No - Dressing Removed: No Incision: Dressing - Maternal Morbidity 59. Maternal Morbidity (serious complications experinced by the mother associated with labor and delivery: None of the above - Lochia Lochia Amount: Scant < 10 ml Lochia Color: Rubra/Red - Abdomen Description: Soft, Round Hernia Present: No Fundal Description: Firm, Midline Fundal Height: u/u - u/2 Objective-Diagnostic Laboratory: 05/24/20 06:49 05/23/20 05/24/20 08:26 06:49 WBC 12.5 H RBC 3.03 L Hgb 9.5 L D Hct 28.1 L MCV 93 MCH 31.4 MCHC 34.0 RDW 12.9 Plt Count 221 Blood Type A POSITIVE Antibody Screen NEGATIVE Assessment and Plan(PN) - Assessment and Plan (1) Anemia Qualifiers: Anemia type: iron deficiency Is this a current diagnosis for this admission?: Yes (2) Status post delivery Is this a current diagnosis for this admission?: Yes (3) Tetrahydrocannabinol (THC) use disorder, mild, abuse Is this a current diagnosis for this admission?: Yes (4) Placental abruption in third trimester Is this a current diagnosis for this admission?: Yes - Time Spent with Patient Time with patient: Less than 15 minutes Medications reviewed and adjusted accordingly: Yes - Disposition Anticipated Discharge Disposition: Home, Self Care Anticipated Discharge Timeframe: within 48 hours
[2020-05-24] MEDS ORDERED: PRENATAL VITAMIN W DHA CAPSULE PO SCH (10:00)
[2020-05-24] MEDS: DOCUSATE SODIUM 100 MG CAPSULE PO SCH (10:55)
[2020-05-24 11:34] VITALS: BP 143/70
[2020-05-24] MEDS ORDERED: IBUPROFEN 800 MG TABLET PO SCH (12:00)
--- NOTE | 2020-05-24 13:48 | PDOC DISCHARGE SUMMARY ---
Impression - Admit/DC Date/PCP Admission Date/Primary Care Provider: 05/23/20 08:18 CINDY MIDDLETON MD Discharge Date: 05/24/20 - Discharge Diagnosis (1) Anemia Is this a current diagnosis for this admission?: Yes (2) Status post delivery Is this a current diagnosis for this admission?: Yes (3) Tetrahydrocannabinol (THC) use disorder, mild, abuse Is this a current diagnosis for this admission?: Yes (4) Placental abruption in third trimester Is this a current diagnosis for this admission?: Yes - Additional Information Resuscitation Status: Full Code Discharge Diet: As Tolerated, Regular Discharge Activity: Activity As Tolerated, Pelvic Rest, No tub bath Referrals: CINDY MIDDLETON MD [Primary Care Provider] - Prescriptions: Oxycodone HCl/Acetaminophen [Percocet 5-325 mg Tablet] 1 tab PO Q4HP PRN #20 tablet PRN Reason: Ibuprofen [Motrin 800 mg Tablet] 800 mg PO Q6 #30 tablet Home Medications: 95/Iron Fum/Folic/Dha [ + Dha Combo Pack] 1 tab PO DAILY 05/22/20 Ibuprofen [Motrin 800 mg Tablet] 800 mg PO Q6 #30 tablet 05/24/20 Oxycodone HCl/Acetaminophen [Percocet 5-325 mg Tablet] 1 tab PO Q4HP PRN #20 tablet 05/24/20 HPI Gestational Age: 35.4 Reason(s) for Admission: Ceasarean Section-Repeat Admission Note: vaginal bleeding, abruption Procedures: Ultrasound Intrapartum Procedure(s): : Low Cervical, Transverse Hospital Course Hospital Course: stable PP, anemia, grieving, desires to be discharged early 60. Maternal Morbidity (serious complications experinced by the mother associated with labor and delivery: None of the above Results Laboratory Results: WBC 12.5 10^3/uL (4.0-10.5) H 05/24/20 06:49 RBC 3.03 10^6/uL (3.72-5.28) L 05/24/20 06:49 Hgb 9.5 g/dL (12.0-15.5) L D 05/24/20 06:49 Hct 28.1 % (36.0-47.0) L 05/24/20 06:49 MCV 93 fl (80-97) 05/24/20 06:49 MCH 31.4 pg (27.0-33.4) 05/24/20 06:49 MCHC 34.0 g/dL (32.0-36.0) 05/24/20 06:49 RDW 12.9 % (11.5-14.0) 05/24/20 06:49 Plt Count 221 10^3/uL (150-450) 05/24/20 06:49 Lymph % (Auto) 30.9 % (13-45) 05/23/20 08:26 [place] % (Auto) 7.8 % (3-13) 05/23/20 08:26 Eos % (Auto) 0.4 % (0-6) 05/23/20 08:26 Baso % (Auto) 0.5 % (0-2) 05/23/20 08:26 Absolute Neuts (auto) 6.0 10^3/uL (1.7-8.2) 05/23/20 08:26 Absolute Lymphs (auto) 3.1 10^3/uL (0.5-4.7) 05/23/20 08:26 Absolute Monos (auto) 0.8 10^3/uL (0.1-1.4) 05/23/20 08:26 Absolute Eos (auto) 0.0 10^3/uL (0.0-0.6) 05/23/20 08:26 Absolute Basos (auto) 0.1 10^3/uL (0.0-0.2) 05/23/20 08:26 Seg Neutrophils % 60.4 % (42-78) 05/23/20 08:26 PT 11.8 SEC (11.4-15.4) 05/23/20 08:26 INR 0.85 05/23/20 08:26 APTT 29.4 SEC (23.5-35.8) 05/23/20 08:26 Fibrinogen 480 mg/dL (209-497) 05/23/20 08:26 Urine Color YELLOW 05/23/20 08:00 Urine Appearance SLIGHTLY-CLOUDY 05/23/20 08:00 Urine pH 6.0 (5.0-9.0) 05/23/20 08:00 Ur Specific [place] 1.018 05/23/20 08:00 Urine Protein NEGATIVE mg/dL (NEGATIVE) 05/23/20 08:00 Urine Glucose (UA) NEGATIVE mg/dL (NEGATIVE) 05/23/20 08:00 Urine Ketones NEGATIVE mg/dL (NEGATIVE) 05/23/20 08:00 Urine Blood MODERATE (NEGATIVE) H 05/23/20 08:00 Urine Nitrite NEGATIVE (NEGATIVE) 05/23/20 08:00 Urine Bilirubin NEGATIVE (NEGATIVE) 05/23/20 08:00 Urine Urobilinogen NEGATIVE mg/dL (<2.0) 05/23/20 08:00 Ur Leukocyte Esterase MODERATE (NEGATIVE) H 05/23/20 08:00 Urine WBC (Auto) 25 /HPF 05/23/20 08:00 Urine RBC (Auto) 2 /HPF 05/23/20 08:00 U Hyaline Cast (Auto) 1 /LPF 05/23/20 08:00 Squamous Epi Cells Auto 5 /HPF 05/23/20 08:00 Urine Mucus (Auto) OCC /LPF 05/23/20 08:00 Urine Ascorbic Acid NEGATIVE (NEGATIVE) 05/23/20 08:00 Urine Opiates Screen NEGATIVE 05/23/20 08:00 Urine Methadone Screen NEGATIVE 05/23/20 08:00 Ur Barbiturates Screen NEGATIVE 05/23/20 08:00 Ur Phencyclidine Scrn NEGATIVE 05/23/20 08:00 Ur Amphetamines Screen NEGATIVE 05/23/20 08:00 U Benzodiazepines Scrn NEGATIVE 05/23/20 08:00 Urine Cocaine Screen NEGATIVE 05/23/20 08:00 U Marijuana (THC) Screen UNCONFIRMED POSITIVE 05/23/20 08:00 RPR NONREACTIVE (NONREACTIVE) 05/23/20 11:32 Influenza A (RT-PCR) NEGATIVE (NEGATIVE) 05/23/20 16:25 Influenza B (RT-PCR) NEGATIVE (NEGATIVE) 05/23/20 16:25 RSV (RT-PCR) NEGATIVE (NEGATIVE) 05/23/20 16:25 SARS-CoV-2 Rap RNA(RT-PCR) NEGATIVE (NEGATIVE) 05/23/20 16:25 Blood Type A POSITIVE 05/23/20 08:26 Antibody Screen NEGATIVE 05/23/20 08:26 Crossmatch See Detail 05/23/20 08:26 Impressions: Obstetrics Ultrasound 05/23/20 00:00 IMPRESSION: No cardiac motion detected. Per limited history provided by the maintenance carpenter, clinical team aware and patient en route to surgery. Plan Health Concerns: anemia, depression Plan of Treatment: discharge home by Dr. Connor, rev S&S to report, rtc 1 week or sooner if needed Goals: no complications Time Spent: Less than 30 Minutes
== END 2020-05-24 14:42 | disposition home or self-care (01) | DRG 786 ==
LOC: LC 07:46 → LR 08:18 → 2N 17:30
PROVIDERS: ADMIT Obstetrics & Gynecology; ATTEND Obstetrics & Gynecology
PROC: 10D00Z1 Extraction of Products of Conception, Low, Open Approach (ICD-10-PCS; principal; 2020-05-23)
DX: O36.4XX0 Maternal care for intrauterine death, not applicable or unspecified (principal); O45.93 Premature separation of placenta, unspecified, third trimester; O99.324 Drug use complicating childbirth; O34.211 Maternal care for low transverse scar from previous cesarean delivery; F12.10 Cannabis abuse, uncomplicated; Z3A.35 35 weeks gestation of pregnancy; Z37.1 Single stillbirth; Z87.59 Personal history of other complications of pregnancy, childbirth and the puerperium; Z87.891 Personal history of nicotine dependence; O99.02 Anemia complicating childbirth; D64.9 Anemia, unspecified; Z20.828 Contact with and (suspected) exposure to other viral communicable diseases
CPT/HCPCS: 1961; 36415; 76815; 80307; 81001; 85025; 85027; 85384; 85610; 85730; 86592; 86850; 86900; 86901; 86920; 88307; 94799; 0241U; C9803; J0131; J0330; J0690; J1885; J2250; J2270; J2405; J2550; J2590; J2704; J3010; J3490